=== PATIENT | male | born 1995 | race Two or more races ===

== ENCOUNTER → 2022-07-05 15:20 | Outpatient (BNVA) | payer MEDICAID, SELFPAY | PROVIDERS: Visit Provider Physician Assistant ==

== ENCOUNTER → 2022-07-24 14:59 | Outpatient (BNVA) | payer OTHER, SELFPAY | PROVIDERS: PCP Family Medicine; Visit Provider Physician Assistant Surgical | DX: Z13.89 Encounter for screening for other disorder (principal) ==

== ENCOUNTER 2022-07-26 10:41 | Outpatient (REF) | payer OTHER, SELFPAY ==
[2022-07-28 11:28] LABS: H Pylori Breath Test Negative (Negative)
== END 2022-07-26 10:42 | disposition home or self-care (01) ==
LOC: HO.LNP 10:41
PROVIDERS: Physician Assistant Surgical; PCP Family Medicine; Visit Provider Physician Assistant
DX: E66.01 Morbid (severe) obesity due to excess calories (principal)
CPT/HCPCS: 83013

== ENCOUNTER 2022-07-31 09:15 | Outpatient (REF) | payer OTHER, SELFPAY ==
--- NOTE | ~2022-07-31 | XR_ITS ---
EXAMINATION: XR CHEST CLINICAL INFORMATION: Bariatric service evaluation. E66.01. COMPARISON: None available. TECHNIQUE: 2 views of the chest were obtained. FINDINGS: The lungs are clear. There is no airspace consolidation, groundglass opacity, or effusion. Heart size normal. Vascularity normal. The hilar and mediastinal contours are unremarkable. No acute bony abnormality. XR/XR chest 2V IMPRESSION: Unremarkable examination.
--- NOTE | 2022-07-31 09:24 | ECG_ITS ---
Test Reason : e66.01 Blood Pressure : / mmHG Vent. Rate : 051 BPM Atrial Rate : 051 BPM P-R Int : 130 ms QRS Dur : 100 ms QT Int : 410 ms P-R-T Axes : 026 061 025 degrees QTc Int : 377 ms Sinus bradycardia with sinus arrhythmia Otherwise normal ECG No previous ECGs available Referred By: Cesar Sparks Electronically Signed By:VAIBHAV OROZCO
[2022-07-31 10:03] LABS: MANUAL DIFF FLAG NO
[2022-07-31 10:44] LABS: Basophils Absolute Auto 0.1 X10*3/uL (0.0-0.2); Basophils Percent Auto 0.7 % (0-2); Eosinophils Absolute Auto 0.3 X10*3/uL (0.0-0.4); Eosinophils Percent Auto 3.1 % (0-4); Hematocrit 41.7 % (42.0-52.0); Hemoglobin 14.2 g/dl (14.0-18.0); Imm Gran Abs Auto 0.02 X10*3/uL (0.00-0.03); Imm Gran Pct Auto 0.2 % (0.0-0.4); Lymphocytes Absolute Auto 2.7 X10*3/uL (1.2-4.9); Lymphocytes Percent Auto 29.8 % (20-40); Mean Corpuscular HGB Conc 34.1 g/dl (31.0-36.0); Mean Corpuscular Hemoglobin 30.7 pg (27.0-33.0); Mean Corpuscular Volume 90.1 fL (80.0-98.0); Mean Platelet Volume 9.8 fL (9.4-12.4); Monocytes Absolute Auto 0.8 X10*3/uL (0.1-1.2); Monocytes Percent Auto 8.4 % (2-11); Neutrophils Absolute Auto 5.2 x10*3/uL (2.0-8.3); Neutrophils Percent Auto 57.8 % (45-73); Platelet Count 304 X10*3/uL (160-400); Red Blood Count 4.63 X10*6/uL (4.60-5.80); Red Cell Distribution Width 12.4 % (11.0-16.0)
[2022-07-31 10:58] LABS: Estimated Average Glucose 100 mg/dL; Hemoglobin A1c % 5.1 %
[2022-07-31 11:18] LABS: Alanine Aminotransferase 25 U/L (0-40); Albumin Level 4.1 g/dL (3.5-5.0); Alkaline Phosphatase 76 U/L (39-117); Anion Gap 10 (12-20); Aspartate Amino Transferase 17 U/L (5-37); Bilirubin Total 0.9 mg/dL (0.0-1.0); Blood Urea Nitrogen 9 mg/dL (9-16); C Reactive Protein 0.93 mg/dL (< or = 0.50); Calcium 9.7 mg/dL (8.4-10.2); Carbon Dioxide 28 mmol/L (22-29); Chloride 104 mmol/L (96-108); Cholesterol 133 mg/dL; Estimated Glomerular Filt Rate > 60; Glucose Random 84 mg/dL (60-115); HDL Cholesterol 34 mg/dL; Iron 113 mcg/dL (45-160); LDL Cholesterol Calculated 89 mg/dl; Percent Iron Saturation 38 % (15-50); Potassium 4.1 mmol/L (3.3-5.1); Sodium 138 mmol/L (135-145); Total Iron Binding Capacity 297 mcg/dL (228-428); Triglycerides 54 mg/dL; Unsaturated Iron Binding 184 ug/dL
[2022-07-31 11:49] LABS: Ferritin 113 ng/mL (20-250); Folate 12.6 ng/mL (> or = 4.0); Insulin 14 uU/mL (2-29); Vitamin B12 570 pg/mL (200-900); Vitamin D 25-OH Total 18.9 ng/mL (>30)
[2022-08-02 15:33] LABS: Calcium (PTHI) 9.5 mg/dL (8.6-10.3); PTHI 41 pg/mL (16-77)
[2022-08-05 13:13] LABS: Zinc 66 mcg/dL (60-130)
[2022-08-07 08:59] LABS: Vitamin B1 <6 nmol/L (8-30)
[2022-08-08 16:54] LABS: Vitamin A 34 mcg/dL (38-98)
== END 2022-07-31 09:16 | disposition home or self-care (01) ==
LOC: HO.XRAY 09:15
PROVIDERS: PCP Family Medicine; Visit Provider Physician Assistant Surgical
DX: E66.01 Morbid (severe) obesity due to excess calories (principal); Z20.2 Contact with and (suspected) exposure to infections with a predominantly sexual mode of transmission
CPT/HCPCS: 36415; 71046; 80053; 80061; 82306; 82607; 82728; 82746; 83036; 83525; 83540; 83970; 84425; 84443; 84590; 84630; 85025; 86140; 93005

== ENCOUNTER → 2022-08-20 13:00 | Outpatient (BNVA) | payer OTHER, SELFPAY | PROVIDERS: PCP Family Medicine; Visit Provider Physician Assistant Surgical ==

== ENCOUNTER → 2022-08-22 13:00 | Outpatient (BNVA) | payer OTHER, SELFPAY | PROVIDERS: PCP Family Medicine; Visit Provider Counselor Mental Health ==

== ENCOUNTER → 2022-09-03 13:27 | Outpatient (BNVA) | payer OTHER, SELFPAY | PROVIDERS: PCP Family Medicine; Visit Provider Dietitian, Registered | DX: E66.9 Obesity, unspecified (principal); Z71.3 Dietary counseling and surveillance | CPT/HCPCS: 97802 ==

== ENCOUNTER → 2022-09-10 12:30 | Outpatient (BNVA) | payer OTHER, SELFPAY | PROVIDERS: PCP Family Medicine; Visit Provider Counselor Mental Health ==

== ENCOUNTER → 2022-09-25 13:17 | Outpatient (BNVA) | payer OTHER, SELFPAY | PROVIDERS: PCP Family Medicine; Visit Provider Physician Assistant Surgical ==

== ENCOUNTER 2022-09-27 08:30 | Outpatient (REF) | payer OTHER, SELFPAY ==
--- NOTE | ~2022-09-27 | US_ITS ---
EXAMINATION: US COMPLETE ABDOMEN WITH LIVER ELASTOGRAPHY CLINICAL INFORMATION: Morbid obesity. COMPARISON: None available. TECHNIQUE: Real-time imaging of the abdominal viscera. Noninvasive ultrasound liver fibrosis assessment is performed using Kevin ElastPQ point quantification shear wave elastography (2D-SWE) with a C5-2 MHz transducer. Multiple elastography samples are obtained. FINDINGS: PANCREAS: Normal. The visualized pancreatic head and body are normal in appearance. The remainder of the pancreas is obscured from visualization by the overlying bowel gas. ABDOMINAL AORTA: The proximal, middle, and distal aortic segments are normal in caliber. INFERIOR VENA CAVA: Visualized portions are normal. LIVER: There is increased echogenicity without evidence of focal mass or intrahepatic bile duct dilatation. The right lobe measures 15.7 cm in length. The left lobe measures 10.7 cm in length. Portal flow is hepatopedal. Shear wave liver elastography median stiffness is 1.57 m/s (reference: normal median stiffness is 1.3 m/s or less). IQR/median stiffness to assess sampling precision is 0.06 (reference: good quality data set is IQR/median stiffness of 0.15 or less). GALLBLADDER: Normal. The gallbladder is physiologically distended without evidence of stones, sludge, polyps, wall thickening or pericholecystic fluid. COMMON BILE DUCT: Normal in caliber measuring 0.4 cm in diameter. RIGHT KIDNEY: Normal. No hydronephrosis. No renal calculi or focal parenchymal lesions. The kidney measures 11.5 cm in maximum dimension. LEFT KIDNEY: No hydronephrosis. No calculi identified. There is a low-density lesion seen within the upper pole measuring 2.1 x 2.3 x 1.7 cm in size which has the appearance of a complex cyst (Bosniak 2F) for which 6 month follow up renal ultrasound is recommended. The kidney measures 12 cm in maximum dimension. SPLEEN: Normal. The spleen measures 11.5 cm in maximum dimension. FREE FLUID: None. US/US abdomen comp w elastography IMPRESSION: 1. Homogeneous increased echogenicity of liver parenchyma consistent with fatty infiltration. 2. Liver elastography: In the absence of other known clinical signs, measurements rule out compensated advanced chronic liver disease. If there are known clinical signs, further testing may be needed for confirmation. 3. Appearance of left renal complex cyst for which 6 month follow up study is recommended. REFERENCE: Society of Radiologists in Ultrasound Liver Stiffness Thresholds (2020): LIVER STIFFNESS THRESHOLDS: *Liver Stiffness equal or less than 1.3 m/s: High probability of being normal. *Liver Stiffness less than 1.7 m/s: In the absence of other known clinical signs, rules out compensated advanced chronic liver disease. *Liver Stiffness 1.7-2.1 m/s: Suggestive of compensated advanced chronic liver disease but need further test for confirmation. *Liver Stiffness over 2.1 m/s: Rules in compensated advanced chronic liver disease. *Liver Stiffness over 2.4 m/s: Suggestive of clinically significant portal hypertension. QUALITY OF DATA SET: *IQR/Median value equal or less than 0.15 implies a quality data set. *IQR/Median value over 0.15 implies a poor quality data set. SIGNIFICANT CHANGE FROM PRIOR EXAM: Significant change if liver stiffness measurement is 10% or greater from prior exam. OTHER CONSIDERATIONS: The stage of liver fibrosis may be overestimated in the setting of acute hepatitis, liver inflammation, elevated liver function tests, hepatic vascular congestion, obstructive cholestasis, non-fasting state, and infiltrative diseases such as amyloidosis and lymphoma. In some patients with NAFLD, the liver stiffness thresholds for compensated advanced chronic liver disease may be lower. In causes other than viral hepatitis and NAFLD, liver stiffness thresholds are not well established.
== END 2022-09-27 08:31 | disposition home or self-care (01) ==
LOC: HO.US 08:30
PROVIDERS: PCP Family Medicine; Visit Provider Physician Assistant Surgical
DX: E66.01 Morbid (severe) obesity due to excess calories (principal)
CPT/HCPCS: 74246; 76705; 76981

== ENCOUNTER 2022-10-24 13:21 | Outpatient (AMB) | payer OTHER, SELFPAY ==
--- NOTE | 2022-10-24 13:03 | MHC.OFFVISWM ---
Intake VS Expanded 10/24/22 13:07 Height 5 ft 6 in Weight 236 lb 9.6 oz BMI 38.2 Intake Visit Reasons: VIDEO F/U SWL Allergies No Known Allergies Allergy (Verified 07/24/22 15:05) HPI HPI Comments History of Present Illness Details The patient is a pleasant 27 year old male who returns to the clinic for pre-operative surgical weight loss management. They were last seen in the office on 09/25/22, recorded weight at that time was 234.8 pounds, with a BMI of 37.9. Today's weight is 236.6 pounds and BMI is 38.2. There has been a weight loss of 19.2 pounds since initiating the surgical weight loss program on 07/05/22 with a total body weight loss of 7.5 %. Pre op work up completed as follows: SWL classes:? 06/29 BH appts: cleared-09/10/22 ? ? RD appts: 10/30/22 Labs: 07/31/22-low D, B1 H. pylori: 07/26/22-neg CXR: 07/31/22-nad EK07/31/22-sinus myles ABD U/S: 09/27/22-L upper pole kidney cyst UGI: 09/27/22-mild gerd The patient reports he had a migraine for the last several days Current meal plan includes: 3 Premier Protein shakes ([employer], [employer], [facility]), First shake, (1 scoop in 8 oz low fat unsweetened almond milk) at 9am-11am Second shake, (1 scoop in 8 oz unsweetened almond milk) at? 1pm-3pm 1 ZP at 4pm-6pm. Dinner at 6pm (8 forks of protein and 8 forks of salad/vegetables). Another shake with 1 scoop in 8 oz unsweetened almond milk at 7pm-9pm. Drinking 80-96 oz of water Current exercise plan includes: Walking 2.5 miles 3 x week, 230-240 calories states he is going to join [employer] Surgical History No pertinent past surgical history Family History Mother No problems noted. Father No problems noted. Social History Alcohol intake: current Alcohol intake frequency: holidays/special occasions only Alcohol type: wine Patient Tobacco Use Status: Never used Tobacco Assessment & Plan Assessment & Plan (1) Obesity (BMI 30-39.9): Code(s): E66.9 - Obesity, unspecified Plan: reminded of upcoming appt with RD Encouraged to join [employer] and increase cardio - given discount paper via picture rtc 1 month Telehealth Telehealth Location of provider rendering services: practice address Location of patient: address on file Patient Identification confirmed using: Name, : Yes Telehealth method: video Patient verbally consented to treatment: Yes Patient verbally consented to billing insurance company: Yes Patient informed of any privacy concerns related to visit: Yes Minutes spent on Phone/Video with Pt.: 10 Coding Level of Care Code Tele Est Pt Level 3 (55178) Diagnoses Obesity (BMI 30-39.9) E66.9 Time Spent (min) 18
[2022-10-24 13:07] VITALS: BMI 38.2
== END 2022-10-24 14:11 | disposition home or self-care (01) ==
LOC: HO.HBS 13:22
PROVIDERS: PCP Family Medicine; Visit Provider Physician Assistant Surgical
DX: E66.9 Obesity, unspecified (principal)
CPT/HCPCS: 99213

== ENCOUNTER → 2022-10-24 13:21 | Outpatient (BNVA) | payer OTHER, SELFPAY | PROVIDERS: PCP Family Medicine; Visit Provider Physician Assistant Surgical | DX: E66.9 Obesity, unspecified (principal) ==

== ENCOUNTER 2022-10-30 13:28 | Outpatient (AMB) | payer OTHER, SELFPAY ==
--- NOTE | 2022-10-30 13:15 | MHC.AMNUTRGE ---
Intake Intake Visit Reasons: VIDEO F/U SWL Allergies No Known Allergies Allergy (Verified 07/24/22 15:05) HPI Nutrition Presentation Details New patient weight 255# Reason for consult elevated BMI Diet Assmnt Details Patient reports he is now following the plan again. Due to the heat he went off track His grandmother had bariatric surgery with [facility] and he reports she has inspired him to get healthier also Exercise: has a treadmill at home and a stationary bike, outside bike. but has not been doing anything recently due to the heat. Classes completed: scored poorly on 4&6 I spoke with patient about this today. He was very receptive to repeating the classes Dietary counseling reduction Diagnosis Nutrition problem #1 overweight/obesity As related to (etiology) #1 excess energy intake and physical inactivity As evidenced by (sign/symptom) #1 high BMI Monitoring/Goals Nutrition problem monitoring total energy intake, level of knowledge/skill, total PRO intake, total CHO intake and weight Outcome progress verbalized understanding Learning/Education Readiness to learn good Stages of change action Educational materials provided Yes Most Recent Diabetes Results: No Data to Display [facility] Surgical History No pertinent past surgical history Family History Mother No problems noted. Father No problems noted. Social History Alcohol intake: current Alcohol intake frequency: holidays/special occasions only Alcohol type: wine Patient Tobacco Use Status: Never used Tobacco Assessment & Plan Assessment & Plan (1) Obesity (BMI 30-39.9): Code(s): E66.9 - Obesity, unspecified Patient Instructions: Patient is cleared from a nutrition standpoint for bariatric surgery. Educational requirements have been completed. Reviewed vitamin supplementation and commitment to protein shake for several months post surgery. Encouraged communication with office as needed Telehealth Telehealth Location of provider rendering services: practice address Location of patient: address on file Patient Identification confirmed using: Name, : Yes Telehealth method: video Patient verbally consented to treatment: Yes Patient verbally consented to billing insurance company: Yes Patient informed of any privacy concerns related to visit: Yes Minutes spent on Phone/Video with Pt.: 20 Coding Level of Care Code Nutr Indiv Subseq (32379) Diagnoses Obesity (BMI 30-39.9) E66.9 Time Spent (min) 20
== END 2022-10-30 13:34 | disposition home or self-care (01) ==
LOC: HO.HBS 13:28
PROVIDERS: PCP Family Medicine; Visit Provider Dietitian, Registered
DX: E66.9 Obesity, unspecified (principal)

== ENCOUNTER → 2022-10-30 13:28 | Outpatient (BNVA) | payer OTHER, SELFPAY | PROVIDERS: PCP Family Medicine; Visit Provider Dietitian, Registered | DX: E66.9 Obesity, unspecified (principal); Z71.3 Dietary counseling and surveillance | CPT/HCPCS: 97803 ==

== ENCOUNTER 2022-11-19 10:34 | Outpatient (AMB) | payer OTHER, SELFPAY ==
--- NOTE | 2022-11-19 12:38 | MHC.OFFVISWM ---
Intake VS Expanded 11/19/22 12:55 Height 5 ft 6 in Weight 232 lb 8 oz BMI 37.5 Body Fat 84.7 Body Fat Percentage 36.4 Free Fat Mass 148 Visceral Mass 15 Water Mass 105.4 BMR 2,089 Intake Visit Reasons: TV Consult/Transfer Cesar Allergies No Known Allergies Allergy (Verified 11/19/22 12:38) Medication List - Last Reconciled 11/19/22 by Stevie Rodriguez MD cholecalciferol (vitamin D3) 125 mcg PO DAILY thiamine HCl (vitamin B1) 100 mg PO DAILY 90 days vitamin A palmitate 3,000 mcg PO DAILY 90 days HPI TV Consult/Transfer Cesar HPI Details Start time: 12.27pm, End time: 1.03pm ?I spent 30 minutes speaking with the patient on the phone plus an additional 5 minutes reviewing and updating records for a total of 35 minutes HPI Comments History of Present Illness Details Overall weight loss: 23lbs, or 8.99% TBWL Is doing 3 Pure protein shakes (one scoop in 8oz almond milk), a [place] yogurt and one meal (8 forks of protein and 8 forks of salad or vegetables) Exercise: walking outside daily for 350 calories [facility] Medical History (Updated 11/19/22 @ 12:59 by Stevie Rodriguez MD) Back pain Depression GERD (gastroesophageal reflux disease) Surgical History No pertinent past surgical history Family History Mother No problems noted. Father No problems noted. Social History Alcohol intake: current Alcohol intake frequency: holidays/special occasions only Alcohol type: wine Patient Tobacco Use Status: Never used Tobacco Assessment & Plan Assessment & Plan (1) GERD (gastroesophageal reflux disease): Code(s): K21.9 - Gastro-esophageal reflux disease without esophagitis (2) Depression: Code(s): F32.A - Depression, unspecified (3) Back pain: Code(s): M54.9 - Dorsalgia, unspecified (4) Obesity: Code(s): E66.9 - Obesity, unspecified Plan: 1. Plan for lap sleeve gastrectomy including upper GI endoscopy. All tests has been completed and reviewed and the patient is cleared for the surgery. ?If diaphragmatic or ventral hernias are present at time of surgery, these will be repaired laparoscopically as well. Risks and complications were discussed in detail including possible conversion to an open procedure, anastomotic leak, bleeding requiring transfusion, small bowel obstruction, , DVT and pulmonary embolism, cardiac, or pulmonary complications, as petroleum terminal plant operator complications such as anastomotic ulcer, insufficient weight loss and vitamin deficiencies. I emphasized the importance of close follow-up, adherence to instructions and good communication. So far he has proven to be an excellent communicator and very compliant with all our directions accomplishing a great weight loss. I believe that he is an excellent candidate and he is ready. 2. Change nutritional plan to 3 Pure protein shakes (HALF scoop EACH in 8oz almond milk), a [place] yogurt and one meal (8 forks of protein and 8 forks of salad or vegetables) 3. Please replace the yogurt with a Zone Perfect protein bar 4. Exercise: continue walking outside daily for 350 calories 5. Start treadmill with an incline of 2.0 and speed of 3.0. Increase incline by 1 every 3 min to a max incline of 8.0, stay 3min at 8.0 and then return to 2.0 and repeat same steps until calorie goal is met. Goal is to burn 2000 calories per week on exercise, which means either 300 calories daily, or 400 calories 5 days per week, or 500 calories 4 days per week, or 650 calories 3 days per week. 6. Alternatively start stationary bike at a resistance level of 4.0 Increase level by 1.0 every 3 min to a max level of 10.0. Stay at this level for 3 min and then return to level 4.0 and repeat same steps until 300 calories are burned. Velocity target is 12mph and heart rate is 145 bpm. Goal is to burn 2000 calories per week on exercise 7. Send me weight measurements weekly on Tuesdays (5) BMI 37.0-37.9, adult: Code(s): Z68.37 - Body mass index [BMI] 37.0-37.9, adult Telehealth Telehealth Location of provider rendering services: practice address Location of patient: address on file Patient Identification confirmed using: Name, : Yes Telehealth method: voice only Patient verbally consented to treatment: Yes Patient verbally consented to billing insurance company: Yes Patient informed of any privacy concerns related to visit: Yes Minutes spent on Phone/Video with Pt.: 35 Coding Level of Care Code Tele Est Pt Level 4 (28197) Diagnoses GERD (gastroesophageal reflux disease) K21.9 Depression F32.A Back pain M54.9 Obesity E66.9 BMI 37.0-37.9, adult Z68.37 Time Spent (min) 35
[2022-11-19 12:55] VITALS: BMI 37.5
== END 2022-11-19 13:03 | disposition home or self-care (01) ==
LOC: HO.HBS 10:34
PROVIDERS: PCP Family Medicine; Visit Provider Surgery
DX: K21.9 Gastro-esophageal reflux disease without esophagitis (principal); F32.A Depression, unspecified; M54.9 Dorsalgia, unspecified; E66.9 Obesity, unspecified; Z68.37 Body mass index [BMI] 37.0-37.9, adult
CPT/HCPCS: 99214

== ENCOUNTER → 2022-11-19 10:34 | Outpatient (BNVA) | payer OTHER, SELFPAY | PROVIDERS: PCP Family Medicine; Visit Provider Surgery ==

== ENCOUNTER 2022-11-29 08:48 | Outpatient (REF) | payer OTHER, SELFPAY ==
[2022-11-29 09:07] LABS: MANUAL DIFF FLAG NO
[2022-11-29 09:38] LABS: Basophils Absolute Auto 0.1 X10*3/uL (0.0-0.2); Basophils Percent Auto 0.5 % (0-2); Eosinophils Absolute Auto 0.3 X10*3/uL (0.0-0.4); Eosinophils Percent Auto 2.7 % (0-4); Hemoglobin 14.3 g/dl (14.0-18.0); Imm Gran Abs Auto 0.04 X10*3/uL (0.00-0.03); Imm Gran Pct Auto 0.4 % (0.0-0.4); Lymphocytes Absolute Auto 3.2 X10*3/uL (1.2-4.9); Lymphocytes Percent Auto 29.1 % (20-40); Mean Corpuscular Volume 90.9 fL (80.0-98.0); Mean Platelet Volume 9.9 fL (9.4-12.4); Monocytes Absolute Auto 0.8 X10*3/uL (0.1-1.2); Monocytes Percent Auto 6.9 % (2-11); Neutrophils Absolute Auto 6.7 x10*3/uL (2.0-8.3); Neutrophils Percent Auto 60.4 % (45-73); Platelet Count 311 X10*3/uL (160-400); Red Blood Count 4.62 X10*6/uL (4.60-5.80); Red Cell Distribution Width 12.8 % (11.0-16.0); White Blood Count 11.1 X10*3/uL (4.8-10.8)
[2022-11-29 09:43] LABS: INTERNATIONAL NORM RATIO 1.1 (0.9-1.1); Prothrombin Time 13.1 SEC (11.1-13.3)
[2022-11-29 09:46] LABS: Partial Thromboplastin Time 41.1 SEC (26.0-36.4)
[2022-11-29 09:48] LABS: Estimated Average Glucose 97 mg/dL
[2022-11-29 10:23] LABS: Alanine Aminotransferase 22 U/L (0-40); Albumin Level 4.1 g/dL (3.5-5.0); Alkaline Phosphatase 89 U/L (39-117); Anion Gap 9 (12-20); Aspartate Amino Transferase 13 U/L (5-37); Bilirubin Total 0.6 mg/dL (0.0-1.0); Blood Urea Nitrogen 13 mg/dL (9-16); C Reactive Protein 1.24 mg/dL (< or = 0.50); Calcium 9.6 mg/dL (8.4-10.2); Carbon Dioxide 27 mmol/L (22-29); Chloride 105 mmol/L (96-108); Cholesterol 144 mg/dL (<200); Estimated Glomerular Filt Rate > 60; Glucose Random 87 mg/dL (60-115); HDL Cholesterol 40 mg/dL (>40); LDL Cholesterol Calculated 93 mg/dL (<100); Potassium 4.1 mmol/L (3.3-5.1); Sodium 137 mmol/L (135-145); Total Protein 7.4 g/dL (6.5-8.0); Triglycerides 57 mg/dL (<150)
[2022-11-29 10:49] LABS: Insulin 20 uU/mL (2-29); TSH reflex Free T4 2.25 uIU/mL (0.32-4.0)
== END 2022-11-29 08:49 | disposition home or self-care (01) ==
LOC: HO.LAB 08:48
PROVIDERS: PCP Family Medicine; Visit Provider Surgery
DX: E66.9 Obesity, unspecified (principal); K21.9 Gastro-esophageal reflux disease without esophagitis; F41.9 Anxiety disorder, unspecified; F32.A Depression, unspecified; Z71.3 Dietary counseling and surveillance; Z68.37 Body mass index [BMI] 37.0-37.9, adult
CPT/HCPCS: 36415; 80053; 80061; 83036; 83525; 84443; 85025; 85610; 85730; 86140; 86850; 86900; 86901

== ENCOUNTER 2022-11-29 09:37 | Outpatient (AMB) | payer OTHER, SELFPAY ==
[2022-11-29 17:46] VITALS: BMI 37.8
--- NOTE | 2022-11-29 17:46 | A.OFFVIS_ITS ---
Intake VS Expanded 11/29/22 17:46 Height 5 ft 6 in Weight 234 lb 1 oz BMI 37.8 Body Fat 87 Body Fat Percentage 37.2 Free Fat Mass 147 Visceral Mass 15 Water Mass 104.6 BMR 2,098 Intake Visit Reasons: TV Pre Op LSG 12/05/22 Allergies No Known Allergies Allergy (Verified 11/19/22 12:38) HPI TV Pre Op LSG 12/05/22 HPI Details Start time: 3pm, End time: 3.30pm I spent 15 minutes speaking with the patient on the phone plus an additional 5 minutes reviewing and updating records for a total of 20 minutes HPI Comments History of Present Illness Details Overall weight loss: 21.7lbs, or 8.48% TBWL Is doing 3 Pure protein shakes (1 scoop each in oz almond milk, one French yogurt and a meal (8 forks of protein and 8 forks of salad or vegetables) Exercise: walking outside for 350 calories x5-6 days per week PFSH Medical History (Updated 11/29/22 @ 13:26 by Fanny Mederos RN) Anxiety Back pain GERD (gastroesophageal reflux disease) Depression Surgical History No pertinent past surgical history Family History Mother No problems noted. Father No problems noted. Social History Are you a primary student career development specialist to a significant other at home: No Do you presently have visiting nurse or other home services: No Alcohol intake: current Alcohol intake frequency: does not drink Alcohol type: wine Patient Tobacco Use Status: Never used Tobacco Use of substances other than those prescribed or required for medical reasons: No Have you been hit, kicked, punched, or otherwise hurt by someone within the past year? If so, by whom?: No Are you DNR?: No Advance Directives: No Advance Directives Information Provided: Yes (brochure mailed) Advance Directives on File: No Recently lost weight without trying: No Eating poorly because of decreased appetite: No Nutrition Risks: No Nutritional Risk Poor oral hygiene: No Physical Exam Vital Signs: BMI result Body Mass Index 37.8 Assessment & Plan Assessment & Plan (1) Obesity: Code(s): E66.9 - Obesity, unspecified Plan: 1. Plan for lap sleeve gastrectomy including upper GI endoscopy. All tests has been completed and reviewed and the patient is cleared for the surgery. If diaphragmatic or ventral hernias are present at time of surgery, these will be repaired laparoscopically as well. Risks and complications were discussed in detail including possible conversion to an open procedure, anastomotic leak, bleeding requiring transfusion, small bowel obstruction, , DVT and pulmonary embolism, cardiac, or pulmonary complications, as intermediate complications such as anastomotic ulcer, insufficient weight loss and vitamin deficiencies. I emphasized the importance of close follow-up, adherence to instructions and good communication. So far he has proven to be an excellent communicator and very compliant with all our directions accomplishing a great weight loss. I believe that he is an excellent candidate and he is ready. 2. Preop prescriptions were provided and explained the purpose of each one. Need to be purchased preop. Start Pantoprazole now as you get it from the pharmacy, 1 pill per day. Sucralfate and Zofran are for after surgery as needed. 3. Bowel prep: please do 7 packets of Miralax mixing each one with a an 8oz glass of water, crystal light, gatorade zero, or propel on 12/03/22 and the same amount on 12/04/22. Continue the protein shakes during the bowel prep. 4. Needs to purchase 1oz medicine cups . 5. Needs to purchase Children's liquid Tylenol for postop pain control. 6. Avoid aspirin, motrin, Advil, Aleve, Ibuprofen, Naproxyn. Tylenol is OK. 7. She needs to purchase the Celebrate 4:1 protein shakes from the [facility] gift [facility]. 8. Will do basic preop blood work-up tomorrow 11/29/22 fasting for 12 hours and is scheduled to see the Anesthesiologist prior to the day of surgery. 9. Importance of adherence to postop folllow-up and recommendations was undersc radha and she understands that. 10. Stop food and bars as of tomorrow 11/29/22 and continue with 4 Pure protein shakes (1/2 scoop in 8oz almond milk) at 1pm-3pm, 4pm-6pm, 7pm-9pm and 10pm-12am and one more Pure protein shake with ONE scoop in 8oz of almond milk at 1am-3am 11. No soups, broths or V8 12. The patient's medical history has been reviewed and they are considered low risk for post op DVT and therefore DVT prophylaxis is not considered necessary. Travel after surgery was reviewed. The patient has not disclosed any travel plans during the first 30 days after surgery and they have been advised that within the first 30 days after surgery any bus, plane, train or car travel over 2 hours in duration is contraindicated due to the possibility of developing blood clots from immobility. Any travel, needs to include periods of ambulation of 10 minutes in duration every 2 hours. Patient was instructed to discuss any plans for travel during this period with their bariatric surgeon. 13. Please take at the day of surgery the following medications: 14. Absolutely no smoking or vaping, or marijuana until the surgery and for at least the first 4 weeks. Only nicotine patches are allowed. 15. Send me weight measurements on and then on the day of surgery before you go to the hospital. 16. Avoid any steroids by mouth for any reason. Let me know if someone prescribes them to you (2) BMI 37.0-37.9, adult: Code(s): Z68.37 - Body mass index [BMI] 37.0-37.9, adult Telehealth Telehealth Location of provider rendering services: practice address Location of patient: address on file Patient Identification confirmed using: Name, : Yes Telehealth method: voice only Patient verbally consented to treatment: Yes Patient verbally consented to billing insurance company: Yes Patient informed of any privacy concerns related to visit: Yes Minutes spent on Phone/Video with Pt.: 30 Coding Level of Care Code Tele Est Pt Level 4 (58084) Diagnoses Obesity E66.9 BMI 37.0-37.9, adult Z68.37 Time Spent (min) 30
== END 2022-11-29 17:57 | disposition home or self-care (01) ==
PROVIDERS: PCP Family Medicine; Visit Provider Surgery
DX: E66.9 Obesity, unspecified (principal); Z68.37 Body mass index [BMI] 37.0-37.9, adult
CPT/HCPCS: 99214

== ENCOUNTER 2022-12-05 06:04 | Inpatient (IN) | payer OTHER, SELFPAY ==
[2022-11-29 13:29] VITALS: BMI 37.8
--- NOTE | 2022-11-29 23:37 | MHC.SHP ---
Pre-Procedural Eval Section A Date of Service: 11/29/22 The patient is an INPATIENT: Yes The History & Physical has been completed within 30 days and I have reviewed it.: Yes Section B Chief Complaint: Obesity, unspecified Relevant Family History (Specify if Yes): No Relevant Social History: None Present Medications: None Medical History: No relevant PMH History of Previous Operations: No relevant previous surgery Allergies: Allergies Allergy/AdvReac Type Severity Reaction Status Date / Time No Known Allergies Allergy Verified 11/19/22 12:38 Review of Systems Sugical H&P ROS: Negative: Constitution, Cardiovascular, Respiratory, Neurological, Psychiatric, Hem-Onc, Allergic/Immunologic, Gastrointestinal, Genitourinary, Musculoskeletal, Integumentary, Endocrine and Eyes/Ears/Nose/Throat Exam Surgical H&P Exam: Normal: HEENT, Normal: Heart, Normal: Lungs, Normal: Extremities, Normal: Abdomen, Normal: Skin and Normal: Neurological Plan Diagnosis/Plan: Unchanged I have reviewed the history and physical and performed a pertinent physical examination on my patient. No changes have occurred unless specified. Time Spent With Patient Time: Total time managing care of this patient today ____ minutes.
--- NOTE | 2022-12-04 10:31 | HO.ANESPROP2 ---
Documented by User: Jessica Conway NP 12/04/22 10:32 HPI - Anesthesia Eval Consult details Narrative: 27yo M for Gastrectomy Sleeve,EGD,poss diaphragmatic hernia,poss ventral hernia,poss open, PMFSH Active Problems Active Problems: All Active Problems (Updated 11/29/22 @ 13:26 by Fanny Mederos RN) BMI 38.0-38.9,adult (Acute) BMI 37.0-37.9, adult (Acute) Obesity (Acute) Renal cyst (Acute) Anxiety disorder, unspecified (Acute) Major depressive disorder, recurrent, mild (Acute) Obesity (BMI 30-39.9) (Acute) Morbid obesity (Acute) Back pain (Acute) GERD (gastroesophageal reflux disease) (Acute) Depression (Acute) Past Medical History Medical History (Updated 12/05/22 @ 07:50 by Stevie Rodriguez MD) Anxiety Back pain GERD (gastroesophageal reflux disease) Depression Family History Family History Mother No problems noted. Father No problems noted. Surgical History Surgical History (Updated 12/05/22 @ 10:24 by Stevie Rodriguez MD) No pertinent past surgical history Social History Social History Household Members: Family Housing: Apartment Are you a primary dog day care attendant to a significant other at home: No Do you presently have visiting nurse or other home services: No Alcohol intake: current Alcohol intake frequency: does not drink Alcohol type: wine Patient Tobacco Use Status: Never used Tobacco Use of substances other than those prescribed or required for medical reasons: No Currently Displaying Signs/Symptoms of Drug Intoxication Withdrawal: No Have you been hit, kicked, punched, or otherwise hurt by someone within the past year? If so, by whom?: No Do you feel safe in your current relationship?: No Current Relationship Is there a partner from a previous relationship who is making you feel unsafe now?: No Are you made to feel afraid or neglected: No Are you DNR?: No Advance Directives: No Advance Directives Information Provided: Yes (brochure mailed) Advance Directives on File: No Do you have thoughts of harming others: None Do you have a plan to hurt others: No Plan Recently lost weight without trying: No Eating poorly because of decreased appetite: No Nutrition Risks: No Nutritional Risk Poor oral hygiene: No Meds Allergies Allergy/AdvReac Type Severity Reaction Status Date / Time No Known Allergies Allergy Verified 11/19/22 12:38 Exam Exam Date and Time: December 04, 2022 1031 Height,Weight and Vital Signs: Height 5 ft 6 in Weight 106.141 kg Pertinent Lab Results Pertinent Lab Results: Laboratory Tests 11/29/22 09:06 WBC 11.1 H Hgb 14.3 Hct 42.0 Plt Count 311 Sodium 137 Potassium 4.1 Chloride 105 Carbon Dioxide 27 BUN 13 Creatinine 0.84 Laboratory Tests 11/29/22 09:00 Blood Type O Positive Antibody Screen NEGATIVE Narrative Narrative: EKG 07/2022 Vent. Rate : 051 BPM Atrial Rate : 051 BPM P-R Int : 130 ms QRS Dur : 100 ms QT Int : 410 ms P-R-T Axes : 026 061 025 degrees QTc Int : 377 ms Sinus bradycardia with sinus arrhythmia Otherwise normal ECG No previous ECGs available Assessment and Plan Assessment Anesthesia Assessment: Chart Reviewed Documented by User: Ernst Suarez MD 12/05/22 16:42 COUNT INCLUDES THE [facility] Past Medical History Medical History (Updated 12/05/22 @ 07:50 by Stevie Rodriguez MD) Anxiety Back pain GERD (gastroesophageal reflux disease) Depression Functional capacity: independent ambulation Family History Family History Mother No problems noted. Father No problems noted. Family history of problems with anesthesia: No Surgical History Surgical History (Updated 12/05/22 @ 10:24 by Stevie Rodriguez MD) No pertinent past surgical history History of Problems with Anesthesia: No Social History Social History Household Members: Family Housing: Apartment Are you a primary dog day care attendant to a significant other at home: No Do you presently have visiting nurse or other home services: No Alcohol intake: current Alcohol intake frequency: does not drink Alcohol type: wine Patient Tobacco Use Status: Never used Tobacco Use of substances other than those prescribed or required for medical reasons: No Currently Displaying Signs/Symptoms of Drug Intoxication Withdrawal: No Have you been hit, kicked, punched, or otherwise hurt by someone within the past year? If so, by whom?: No Do you feel safe in your current relationship?: No Current Relationship Is there a partner from a previous relationship who is making you feel unsafe now?: No Are you made to feel afraid or neglected: No Are you DNR?: No Advance Directives: No Advance Directives Information Provided: Yes (brochure mailed) Advance Directives on File: No Do you have thoughts of harming others: None Do you have a plan to hurt others: No Plan Recently lost weight without trying: No Eating poorly because of decreased appetite: No Nutrition Risks: No Nutritional Risk Poor oral hygiene: No Meds Allergies Allergy/AdvReac Type Severity Reaction Status Date / Time No Known Allergies Allergy Verified 11/19/22 12:38 Exam Airway Mallampati Class: IV Loose/Missing/Broken Teeth: Yes Assessment and Plan Assessment Anesthesia Assessment: Anesthesia Plan Discussed Final Anesthetic Review Family History of Problems with Anesthesia: No History of Problems with Anesthesia: No NPO: Yes ASA Class: II Final Preanesthetic Review: Meds/Allgs Chart Reviewed, Consent Obtained/Reviewed and Anes Risks/Benef Reviewed Patient Risk: Intermediate Procedure Risk: Intermediate Anesthetic Plan Anesthetic Plan: GA and Agree w/ Assess. and Plan Disposition: Standard PACU
[2022-12-05] VITALS (18 sets, daily range): BP systolic 107–162; BP diastolic 63–93; PULSE 51–113; RESP 16–30; TEMP 36–36.7; O2SAT 94–100
[2022-12-05] MEDS: Aprepitant 32 MG/4.4 ML VIAL IVPUSH (06:53)
[2022-12-05] MEDS: Lactated Ringers 1,000 ML 999 ML IV (06:53)
--- NOTE | 2022-12-05 07:25 | PC.NURSE ---
patient states had very little bowel movements after bowel prep. result is small amounts of solid stool. Dr. Donohue and CASSIDY Jose aware.
--- NOTE | 2022-12-05 07:43 | PM.OP ---
Brief Operative Note Date of Service: 12/05/22 Post-op diagnosis: same Procedure: INITIAL PATIENT BMI ON PRESENTATION AT OUR OFFICE: 41.3 kg/m2 LAST BMI BEFORE SURGERY: 38 kg/m2 COMORBIDITIES: GERD, depression, liver steatosis, back pain, liver fibrosis ?The patient presented to the Weight Management Program with significant obesity that was negatively impacting the patient's comorbidities as listed above.? The program is a phased program with a special focus on preoperative medical weight management to promote substantial weight loss and prepare the patients for the second phase of the program: bariatric surgery. The patient participated in an intensive weekly lifestyle ?intervention and exercise program during which the patient ?has lost between the initial office visit and the last preoperative visit 21,7lbs, or 8.48% of initial actual body weight. It was deemed appropriate for the patient to now have bariatric surgery. In light of the current Covid-19 pandemic and the well documented strong association of obesity and increased risk of worse outcomes if infected with Covid-19 (REFERENCES:https://pubmed.ncbi.nlm.nih.gov/34032860/,?https://pubmed.ncbi.nlm.nih.gov/88767221/), any delay in undergoing bariatric surgery may lead to the patient's worsening health condition and increased?risk of more severe Covid-19 disease if infected. In addition a recent?study from [facility] published in [facility] on 03/19/2021 ([email or web address]) found that, among patients with obesity, substantial weight loss achieved with surgery was associated with improved outcomes of COVID-19 infection. The findings suggest that obesity can be a modifiable risk factor for the severity of COVID-19 infection. In addition, the patient met the BMI-criteria for bariatric surgery based on the BMI on initial presentation. The patient should not be penalized for achieving such weight loss because ?it is not sustainable long-term without surgical intervention and it was achieved in preparation for bariatric surgery ?under my direction and based on my published research ([email or web address]).[email or web address] and?https://www.soard.org/article/[email or web address](29)40728-X/pdf) ?that a 10% preoperative weight loss improves long-term weight loss after surgery and reduces perioperative complications.? Insurance carriers such as [facility] have endorsed my recommendations ?and have included in their policies criteria to include a 10% preoperative weight loss requirement. PROCEDURE: Esophago-gastroscopy, laparoscopic sleeve gastrectomy and laparoscopic gastropexy INDICATIONS: This is a 27 year-old male who was electively scheduled for laparoscopic, possibly open sleeve gastrectomy. The risks and complications of the procedure were discussed with the patient in advance, particularly the possibility of ; pulmonary embolism; staple line leak; bleeding; GERD; cardiac, pulmonary, or renal complications; as well as long-term problems such as insufficient weight loss, vitamin deficiency, strictures, or ulcers. The patient understood all the risks, and was in agreement to proceed with surgery. DESCRIPTION OF PROCEDURE: After informed consent was obtained from the patient, the patient was given preoperative antibiotics, and was transferred to the operating room. After successful induction of general anesthesia, pneumatic compression devices were placed on both lower extremities. An upper endoscopy was performed next. The oropharynx and esophagus appeared to be within normal limits. There was no diaphragmatic hernia present consistent with the findings of the preoperative upper GI. The stomach was entered. Then after all fluid and air were suctioned and the stomach was fully decompressed, the scope was withdrawn and secured in the mid esophagus. The patient was then prepped and draped in the usual sterile manner, and abdominal access was established at the right upper quadrant with the Nolberto technique. A 12 mm blunt port was inserted, and the abdomen was insufflated with CO2 to a pressure of 15 mmHg. Under direct visualization, additional ports were placed, specifically two 5 mm Versi-step ports to the left upper quadrant, and a 5 mm Versi-Step port to the right upper quadrant. 1% lidocaine plain was used to infiltrate all port sites as well as all fascia defects. Using the EndoClose suture passer device, I placed a #1 Polysorb tie across the falciform ligament in order to retract it up against the abdominal wall and prevent injury of the ligament with our instruments during the procedure. Following that, the patient was placed in a steep reverse Trendelenburg position. An additional 5 mm port was placed to the right flank for the Mediflex retractor that was used to retract the left lobe of the liver. The gastro-esophageal fat pad was opened with the ultrasonic device (Thunderbeat, Olympus) and the anterior esophagus and hiatus were exposed. The angle of His was opened with the ultrasonic device the fundus of the stomach from any diaphragmatic and splenic attachments. I then opened the gastrocolic ligament between the transverse colon and the greater curvature of the stomach with the ultrasonic device to enter the lesser sac and facilitate the ligation of the short gastric vessels. I started at a mid-point along the greater curvature and using the Thunderbeat, all short gastric vessels were divided all the way to the angle of His until the left tory was completely dissected at its entirety. I then divided the gastro-colic ligament distally to a distance of about 3-4 cm proximal to the pylorus. The stomach was then divided transversely with two Endo IAN-45 purple and three IAN-60 articulating purple loads using the ePAR stapler and loads. Every effort was made that the gastric sleeve had a tubular shape and an even caliber throughout. Once the sleeve resection was completed, the staple line of the gastric sleeve was reinforced with Hemoclips. The resected stomach was retrieved without difficulty from the Nolberto port. A gastropexy was then performed in order to prevent postoperative GERD and partial gastric volvulus. Several interrupted 2.0 Surgidac sutures were placed between the sleeve's staple line and the previously divided greater omentum and gastro-colic ligament using the Endo-Stitch device. ?An upper endoscopy was performed. There was no narrowing at the GE junction. The scope was easily advanced all the way to the pylorus which was clearly visualized. There was no narrowing anywhere and the sleeve's caliber was even throughout. The sleeve's staple line was inspected and there was no evidence of ischemia, bleeding or dehiscence. At that point the gastroscope was withdrawn from the patient?s mouth while we were decompressing the bowel and the stomach from any remaining air. I looked into the lesser sac to see how the sleeve was situating and it was situating well. There was no bleeding from the staple line, spleen, or short gastric vessels. The Mediflex retractor was removed, and the undersurface of the liver was inspected and there was no bleeding. The patient was placed in supine position. I closed the fascial defect of the 12 mm port site with a figure of eight #1 Polysorb suture. Then 30cc Ropivacaine plain with 10 mg of Dexamethasone were used to infiltrate the fascial closure as well as all skin incisions. A total of 7ml Zynrelef was applied in the Nolberto wound. At this point, the abdomen was deflated, all ports were removed under direct vision, and no bleeding was noted from any of the port sites. The skin incisions were irrigated with saline and were closed with 4-0 absorbable monofilament sutures. Steri-Strips and OpSites were used to cover all incisions. The patient was extubated and was transferred in stable condition to the recovery room for further care. I was present and performed all hernández parts of the procedure. Mr. Sparks was the printer floor covering assistant. There were no residents to assist with this case. Russell Rodriguez MD, PhD, FACS Surgeon: Stevie Rodriguez MD Anesthesia: GETA, local and other (TAP block and 7ml Zynrelef) Was an Calender Machine Operator used for this Procedure?: No Calender Machine Operator: Cesar Sparks Estimated blood loss (mL): 10 IV fluids (mL): 2,300 Urine output (mL): 0 (No Lou to record output) Pathology: other (Stomach) Condition: stable Disposition: PACU
--- NOTE | 2022-12-05 07:48 | P.PNGS_ITS ---
Subjective Subjective Date of Service: 12/06/22 Interval history: Feels well. Mild incisional pain. He is tolerating phase 1 bariatric diet Physical Exam 2 Vital Signs: Vital Signs: Last Vital Signs Temp 97.6 F 12/05/22 06:40 Pulse 51 12/05/22 06:40 Resp 16 12/05/22 06:40 BP 107/63 12/05/22 06:40 Pulse Ox 97 12/05/22 06:40 O2 Del Method Room Air 12/05/22 06:40 BMI result Body Mass Index 37.8 GI: Inspection: Yes normal to inspection, Yes incision (clean, dry and intact) and Yes obesity Palpation (GI): Soft to palpation Extrem: Right lower extremity: normal to inspection (no calf tenderness) L eft lower extremity: normal to inspection (no calf tenderness) Objective Data Active Medications Lactated Ringer's (Lr) 1,000 mls @ 100 mls/hr IVCONT .Q10H COLEMAN Lactated Ringer's (Lr) 1,000 mls @ 999 mls/hr IV .Q1H1M COLEMAN Stop: 12/05/22 08:15 Last Admin: 12/05/22 06:53 Dose: 999 mls/hr Documented By: SANDY Labs 12/06/22 06:02 12/06/22 06:02 Procedures Date of Service Date of Service: 12/06/22 Progress Note: A&P Assessment and plan (1) Obesity: Status: Acute Assessment and Plan: s/p laparoscopic sleeve gastrectomy and gastropexy Doing well Will check am labs and if OK the patient will be discharged home (2) BMI 38.0-38.9,adult: Status: Acute (3) GERD (gastroesophageal reflux disease): Status: Acute (4) Depression: Status: Acute (5) Back pain: Status: Acute (6) Liver fibrosis: Status: Acute (7) Steatosis, liver: Status: Acute (8) Status post sleeve gastrectomy: Status: Acute Time Spent With Patient Time: Total time managing care of this patient today ____ minutes. Quality Stroke Does the patient have a stroke diagnosis?: No VTE Prior VTE?: No VTE Risk Level:: Surgical - moderate VTE Device Contraindication: N/A - Device Ordered VTE Drug Contraindication: Treatment Not Indicated
--- NOTE | 2022-12-05 10:35 | P.DS_ITS ---
DS: Providers Provider Date of Service: 12/06/22 Date of admission: 12/05/22 06:04 Primary care physician: Luis Astudillo MD DS: Diagnosis Discharge Diagnosis (1) Obesity: Status: Acute (2) BMI 38.0-38.9,adult: Status: Acute (3) GERD (gastroesophageal reflux disease): Status: Acute (4) Depression: Status: Acute (5) Back pain: Status: Acute (6) Liver fibrosis: Status: Acute (7) Steatosis, liver: Status: Acute (8) Status post sleeve gastrectomy: Status: Acute DS: Summary Hospital Course Hospital Course: ADMITTING DIAGNOSIS: obesity, anxiety, depression ? DISCHARGE DIAGNOSIS: same, s/p laparoscopic sleeve gastrectomy ? PAST SURGICAL HISTORY: none ? PROCEDURE: upper endoscopy, laparoscopic sleeve gastrectomy ? DISCHARGE SUMMARY: ? History of Present Illness: ? The patient is a?27 year-old male with a BMI of?40.8 kg/m2 and associated co- morbidities as described above. The patient had extensive work-up,lost?19.2 lbs preoperatively and was electively scheduled for laparoscopic, possible open sleeve gastrectomy and gastropexy. Risks and complications of the surgery were discussed with the patient in advance, particularly the possibility of , pulmonary embolism, anastomotic leak, bleeding, bowel injury, GERD, cardiac, renal or pulmonary complications. The patient understood all the risks and was in agreement with the surgical plan. ? Hospital Course: ? The patient underwent an uneventful laparoscopic sleeve gastrectomy with gastropexy on the day of admission. Postoperatively, the patient was transferred to the surgical floor. The patient received IV Acetaminophen and IV dilaudid for pain control. Patient was started on bariatric phase 1 diet POD #0. On postoperative day one, the patient was feeling well without nausea, vomiting, fevers, or tachycardia. The patient had some mild incisional pain and the abdomen was soft. ? On the morning of postoperative day one, the patient was continued on 1 ounce of water or ice every half hour. During the day, the patient did fairly well, having some incisional pain, but able to ambulate adequately and to tolerate liquids well. ? Since the patient is doing well, we decided that the patient was ready to be discharged. The patient was given instructions to follow-up with me next week and to call my office for any fever over 101, persistent abdominal pain, nausea, vomiting, GERD, symptoms of DVT such as calf tenderness, or leg swelling, or pulmonary embolism such as chest pain or shortness of breath. The patient was also instructed to drink 40-60 ounces of liquids per day using the 1-ounce cups. The patient had been given prescriptions for Tylenol for pain, Zofran prn for nausea, and pantoprazole and carafate previously. The patient was encouraged to ambulate and use the incentive spirometer. The patient was allowed to shower, but no baths, and encouraged to stay active at home. All of these instructions were given to the patient personally. All questions were answered and the patient understood all instructions, the instructions were also given to the patient in print. Time Spent with Patient Time attestation: Total time managing care of this patient today ____ minutes. Discharge coordination time: Less than 30 minutes Quality: Safe Use of Opioids Does Pt have an Active Cancer Diagnosis on the Problem List?: No Quality: Stroke Does the patient have a stroke diagnosis?: No Physical Exam Vital Signs: Vital Signs: Last Vital Signs Temp 97.3 F 12/05/22 09:55 Pulse 86 12/05/22 10:00 Resp 14 12/05/22 10:00 BP 131/59 L 12/05/22 10:00 Pulse Ox 100 12/05/22 10:00 O2 Del Method Nasal Cannula wit h Capnography 12/05/22 10:00 O2 Flow Rate 2 12/05/22 10:00 BMI result Body Mass Index 37.8 DS: Data Data Completed and Pending Pending studies at discharge: Pending at discharge 12/05/22 09:18 Surgical [PTH] Routine Discharge Plan Discharge Anticipated Discharge Date/Time: 12/06/22 09:36 Patient Disposition: Home, Self-Care Discharge Diagnosis: s/p laparoscopic sleeve gastrectomy Referrals: Luis Astudillo MD [Primary Care Provider] - 1 Week Discharge Medications: Continued pantoprazole 40 mg tablet,delayed release (DR/EC) 40 mg PO DAILY Qty: 30 2RF sucralfate 100 mg/mL suspension 10 ml PO BID Qty: 400 2RF ondansetron 4 mg tablet,disintegrating 4 mg PO Q12H Qty: 20 0RF Rx Instructions: Only take one every 12 hours as needed if you have nausea Discontinued thiamine HCl (vitamin B1) 100 mg tablet 100 mg PO DAILY 90 Days Qty: 90 1RF vitamin A palmitate 3,000 mcg (10,000 unit) capsule 3,000 mcg PO DAILY 90 Days Qty: 90 0RF cholecalciferol (vitamin D3) 125 mcg (5,000 unit) capsule 125 mcg PO DAILY Qty: 90 0RF Discharge Orders: Discharge Order (Routine); Ordered 12/06/22 Ordered By: Stevie Rodriguez Activity on Discharge: No heavy lifting Stand Alone Forms: Patient Portal Discharge page Care Plan Goals: weight loss Health Concerns: obesity Plan of Treatment: No tub baths, sex or returning to work until discussed at first post op a ppointment. No exercise, alcohol, tobacco or illegal drug use. Continue to use incentive spirometer hourly while awake. Walk in home for 5- 10 minutes every 2 hours during the first week. Follow all instructions in the bariatric handbook and call with any questions.Discharge Instructions 1. Please call your doctor or come back to the emergency room should any new symptoms arise. 2. You will receive a courtesy call from [facility] 24-48 hours after discharge. 3. Activity: abstain from alcohol, practice limited stair climbing, no bending, no driving, no exercise, no illicit substances, no lifting, no sex, no tub bath, no work. 4. Diet: continue as discussed with Dr. Rodriguez. 5. Dressing Change/Wound Care: Your incision is covered by clear bandages and guaze underneath. If the area is tender, you may apply an ice pack for short intervals (no more than 20 minutes on, followed by at least 20 minutes off). Do not apply heat. Do not use creams, lotions, or topical antibiotics unless instructed to do so by your surgeon. These can cause infection or allergic reaction. 6. Call your doctor if: - Your temperature exceeds 101.5 F - You experience excessive pain or swelling - You have an unexpected reaction to medication - You have excessive bleeding - You experience continued vomiting/nausea - Your incision begins to separate - Your incision shows signs of infection such as increased redness, swelling, excessive pain, heat, or drainage (light blood or clear fluid is normal) 7. General instructions: No lifting greater than 5 lbs for 1 week and not more than 20lbs the next 3?weeks. No driving until seen at the office in 5-7 days after surgery. If you do not move your bowels in the next 2 days, please tell?Dr. Rodriguez. Please walk around your home every hour or two to prevent blood clots from forming in your legs. You do not need to wake from sleeping to walk. Please sleep in a bed or couch to prevent kinking at the hips and knees. Please take your incentive spirometer (your lung mold shaker) home with you and use it for the next few days to prevent pneumonia. You may shower, no hot tubs, baths or swimming pools.?Please follow the post op diet instructions you are?given by Dr Le galindo? and text me daily at 5-6pm for an update.?If you have any issues or concerns or questions please communicate this to him via text .? The Celebrate shakes have all of the bariatric vitamins you need if you consume these shakes. If you are drinking other protein shakes, you will need to purchase the Celebrate multivitamins and calcium that are available in the hospital gift shop on the first floor of the [facility].??Do not take anything without first discussing with Dr Rodriguez. Please make sure you are consuming at least 40 ounces of fluids per day starting the?day AFTER your discharge from the hospital. Always drink 1-2 ml per minute using the 5ml?syringe. If you drink faster you may experience?bloating,?gas pain, burping, nausea or heartburn. In that case please slow down your pace and use the syringe to?understand better the?proper?pace and volume of drinking. Do not hesitate to contact the office with any questions at . The patient's medical history has been reviewed and they are considered low risk for post op DVT and therefore DVT prophylaxis is not considered necessary. Travel after surgery was reviewed. The patient has not disclosed any travel plans during the first 30 days after surgery and they have been advised that within the first 30 days after surgery any bus, plane, train or car travel over 2 hours in duration is contraindicated due to the possibility of developing blood clots from immobility. Any travel, needs to include periods of ambulation of 10 minutes in duration every 2 hours.? The patient was instructed to discuss any plans for travel during this period with their bariatric surgeon. Assessment: stable s/p laparoscopic sleeve gastrectomy
--- NOTE | 2022-12-05 11:02 | PHA.MEDREC ---
Pharmacy Consult ? Medication Reconciliation Pharmacy has completed the medication reconciliation. Checked med rec done by nursing
[2022-12-05 11:25] LABS: Hemoglobin 13.7 g/dl (14.0-18.0)
[2022-12-05] MEDS: HYDROmorphone HCl 0.5 MG/0.5 ML SYRINGE 0.25 MG IVPUSH ×2 (11:33→11:38)
[2022-12-05 11:35] LABS: Anion Gap 13 (12-20); Blood Urea Nitrogen 7 mg/dL (9-16); Calcium 9.1 mg/dL (8.4-10.2); Carbon Dioxide 24 mmol/L (22-29); Chloride 102 mmol/L (96-108); Creatinine Clr Calc Pharmacy 171.2; Estimated Glomerular Filt Rate > 60; Glucose Random 112 mg/dL (60-115); Potassium 3.6 mmol/L (3.3-5.1); Sodium 135 mmol/L (135-145)
[2022-12-05] MEDS: ceFAZolin Sodium/Dextrose,Iso 2 GM/50 ML PIGGYBACK IV (13:29)
[2022-12-05] MEDS: Lactated Ringers 1,000 ML 100 ML IVCONT ×2 (13:29→23:18)
[2022-12-05] MEDS: Famotidine/PF 20 MG/2 ML VIAL IVPUSH (20:16)
[2022-12-05] MEDS: 0.9 % Sodium Chloride Flush 3 ML SYRINGE IVFLUSH (20:16)
[2022-12-05] MEDS: Acetaminophen 1,000 MG/100 ML PIGGYBACK 400 MG IV (20:33)
[2022-12-06] MEDS: Acetaminophen 1,000 MG/100 ML PIGGYBACK 400 MG IV (02:31)
[2022-12-06 03:46] VITALS: BP 119/65; PULSE 78; RESP 17; TEMP 36.3; O2SAT 96
[2022-12-06 06:13] LABS: MANUAL DIFF FLAG NO
[2022-12-06 06:18] LABS: Basophils Percent Auto 0.1 % (0-2); Eosinophils Percent Auto 0.1 % (0-4); Hematocrit 39.1 % (42.0-52.0); Hemoglobin 13.5 g/dl (14.0-18.0); Imm Gran Abs Auto 0.08 X10*3/uL (0.00-0.03); Imm Gran Pct Auto 0.5 % (0.0-0.4); Lymphocytes Absolute Auto 1.4 X10*3/uL (1.2-4.9); Mean Corpuscular HGB Conc 34.5 g/dl (31.0-36.0); Mean Corpuscular Hemoglobin 30.5 pg (27.0-33.0); Mean Corpuscular Volume 88.3 fL (80.0-98.0); Mean Platelet Volume 9.6 fL (9.4-12.4); Monocytes Percent Auto 6.1 % (2-11); Neutrophils Absolute Auto 13.2 x10*3/uL (2.0-8.3); Neutrophils Percent Auto 84.2 % (45-73); Platelet Count 319 X10*3/uL (160-400); Red Blood Count 4.43 X10*6/uL (4.60-5.80); Red Cell Distribution Width 12.5 % (11.0-16.0); White Blood Count 15.6 X10*3/uL (4.8-10.8)
[2022-12-06 06:32] LABS: Anion Gap 13 (12-20); Blood Urea Nitrogen 6 mg/dL (9-16); Calcium 9.2 mg/dL (8.4-10.2); Carbon Dioxide 23 mmol/L (22-29); Chloride 106 mmol/L (96-108); Creatinine Clr Calc Pharmacy 191.9; Estimated Glomerular Filt Rate > 60; Glucose Random 112 mg/dL (60-115); Potassium 4.1 mmol/L (3.3-5.1); Sodium 138 mmol/L (135-145)
[2022-12-06 07:03] VITALS: BP 130/79; PULSE 55; RESP 18; TEMP 36.4; O2SAT 97
[2022-12-06] MEDS: Famotidine/PF 20 MG/2 ML VIAL IVPUSH (08:47)
[2022-12-06] MEDS: 0.9 % Sodium Chloride Flush 3 ML SYRINGE IVFLUSH (08:48)
--- NOTE | 2022-12-06 09:00 | MHC.CM.PN ---
PATIENT LIVES WITH FAMILY AND IS INDEPENDENT WITH ALL ADLS. NO DME OR VNA SERVICES. HCP IS GRAND MOTHER, ROBERT, AND COPY IS REQUESTED FOR MEDICAL RECORDS. DC PLAN IS HOME TODAY - SELF CARE RN AWARE
== END 2022-12-06 10:21 | disposition home or self-care (01) | DRG 621 ==
LOC: HO.SSSA 10:37 → HO.S3 13:02
PROVIDERS: Physician Assistant Surgical; Admitting Provider Surgery; PCP Family Medicine; Visit Provider Surgery
PROC: 0DB64Z3 Excision of Stomach, Percutaneous Endoscopic Approach, Vertical (ICD-10-PCS; CPT 43845; principal; 2022-12-05 07:30)
DX: E66.9 Obesity, unspecified (principal); K21.9 Gastro-esophageal reflux disease without esophagitis; K76.0 Fatty (change of) liver, not elsewhere classified; M54.9 Dorsalgia, unspecified; K74.00 Hepatic fibrosis, unspecified; F41.9 Anxiety disorder, unspecified; F32.A Depression, unspecified; Z68.38 Body mass index [BMI] 38.0-38.9, adult; Z79.899 Other long term (current) drug therapy
CPT/HCPCS: 36415; 80048; 85014; 85018; 85025; 86850; 86900; 86901; 88304; 88305; 88307; 88342; A4649; C9088; C9145; J0131; J0690; J1100; J1170; J2250; J2371; J2405; J2550; J2795; J3010

== ENCOUNTER → 2022-12-05 06:04 | Outpatient (BNV) | payer OTHER, SELFPAY | PROVIDERS: Admitting Provider Surgery; PCP Family Medicine; Visit Provider Surgery | DX: E66.9 Obesity, unspecified (principal); Z68.38 Body mass index [BMI] 38.0-38.9, adult | CPT/HCPCS: 43659; 43775 ==

== ENCOUNTER 2022-12-10 10:20 | Outpatient (AMB) | payer OTHER, SELFPAY ==
--- NOTE | 2022-12-10 10:46 | MHC.OFFVISWM ---
Intake VS Expanded 12/10/22 11:10 Height 5 ft 6 in Weight 225 lb 9.6 oz BMI 36.4 BP 112/65 Blood Pressure Location Rt brachial Blood Pressure Position Sitting Pulse 86 Pulse Source Pulse Oximeter Temp 97.0 F Temperature Source Tympanic Pulse Oximetry 94 Oxygen Delivery Method Room Air Body Fat 76.8 Body Fat Percentage 34.0 Free Fat Mass 148.8 Muscle Mass 141.6 Visceral Mass 18.0 Water Mass 106.8 BMR 2,022 Intake Visit Reasons: (OV) 5 Days PO LSG 12/05/22 Allergies No Known Allergies Allergy (Verified 11/19/22 12:38) HPI HPI Comments History of Present Illness Details 27 yo male POD 5 s/p LSH on 12/05/22. Allo 3 celebrate 4 in 1 shakes w scoop each and 40 oz water Pos BM no sig pain. PFSH Medical History (Updated 12/07/22 @ 00:01 by Sy Law) BMI 38.0-38.9,adult Morbid obesity Anxiety Back pain GERD (gastroesophageal reflux disease) Depression Surgical History (Updated 12/10/22 @ 11:14 by Aspen Wilson CMA) Hx of laparoscopic partial gastrectomy Family History Mother No problems noted. Father No problems noted. Social History Household Members: Family Housing: Apartment Are you a primary home care chaplain to a significant other at home: No Do you presently have visiting nurse or other home services: No Alcohol intake: current Alcohol intake frequency: does not drink Alcohol type: wine Patient Tobacco Use Status: Never used Tobacco service: No Physical Exam Vital Signs: Last Vital Signs Temp 97.0 F 12/10/22 11:10 Pulse 86 12/10/22 11:10 BP 112/65 12/10/22 11:10 Pulse Ox 94 12/10/22 11:10 Oxygen Delivery Method Room Air 12/10/22 11:10 BMI result Body Mass Index 36.4 GI Inspection: Yes incision (central ecchymosis, c/d/i) Assessment & Plan Assessment & Plan (1) Status post sleeve gastrectomy: Code(s): Z90.3 - Acquired absence of stomach [part of] Plan: POD 5 s/p LSG on 12/05/[address] Rodriguez Weight loss prior to surgery was 22.4 pounds or 8.7% TBWL. Original weight on 07/05/22 was 255.8 pounds and op weight was 233.4 pounds. Be sure to text Dr Rodriguez exactly 1 week after surgery your weight from your home scale so he can adjust your meal plan. Continue meal plan until f/u w deleon in 2 weeks May shower, no submersion in bath for another week Continue abdominal binder with activity and exercise for the next 2 weeks. Exercise prior to surgery was walking and treadmill, may resume on No abdominal exercises for 6 weeks post operatively Will be emailed link to post op video for review Reminded of the pace of drinking, 2 mL per minute, 1 oz/15 min. Coding Level of Care Code Global (79090) Diagnoses Status post sleeve gastrectomy Z90.3
[2022-12-10 11:10] VITALS: BP 112/65; PULSE 86; TEMP 36.1; O2SAT 94; BMI 36.4
== END 2022-12-10 11:53 | disposition home or self-care (01) ==
PROVIDERS: PCP Family Medicine; Visit Provider Physician Assistant Surgical
DX: E66.9 Obesity, unspecified (principal); Z68.36 Body mass index [BMI] 36.0-36.9, adult; Z90.3 Acquired absence of stomach [part of]; Z98.84 Bariatric surgery status
CPT/HCPCS: 99024

== ENCOUNTER → 2022-12-10 10:20 | Outpatient (BNVA) | payer OTHER, SELFPAY | PROVIDERS: PCP Family Medicine; Visit Provider Physician Assistant Surgical ==

== ENCOUNTER 2023-01-06 12:29 | Outpatient (AMB) | payer OTHER, SELFPAY ==
--- NOTE | 2023-01-06 12:47 | A.OFFVIS_ITS ---
Intake VS Expanded 01/06/23 12:52 BP 95/55 L Blood Pressure Location Rt brachial Blood Pressure Position Sitting Pulse 67 Pulse Source Pulse Oximeter Temp 97.7 F Temperature Source Temporal Artery Scan Pulse Oximetry 67 L Oxygen Delivery Method Room Air Height 5 ft 6 in Weight 210 lb 9.6 oz BMI 34.0 Body Fat % 30.7 Body Fat Mass 64.6 Fat Free Mass 146.0 Visceral Fat Rating 12.0 Body Water % 51.0 Body Water Mass 107.4 Muscle Mass/Score 138.6 Basal Metabolic Rate/Score 2,003 Intake Visit Reasons: (OV) PO LSG 12/05/22 Intake Note: Re-checked pts Bp: 109/58 left brachial Mechanical Adjuster Required: No Allergies No Known Allergies Allergy (Verified 01/06/23 12:48) Medication List - Last Reconciled 01/06/23 by CASSIDY Concepcion pantoprazole 40 mg PO DAILY sucralfate 10 mL PO BID HPI HPI Comments History of Present Illness Details This?a?27?yo male who is s/p LSG without hiatal hernia repair on?12/05/22. Presents for 1 month post op visit. Weight today is 210.6 pounds, with a BMI of 34. There has been a 45.2 pound weight loss,(initial weight 255.8 pounds) since starting the program on 07/05/22 reflecting a 17.6% total body weight loss and a weight loss of 22.8 pounds since surgery (operative weight 233.4 pounds) reflecting a 9.7% TBWL since surgery. No complaints of nausea, emesis, abdominal pain or reflux. Reports infrequent but normal bowel movements every 2 days and uses stool softeners regularly. States that it is difficult for him to do the recommended meal plan per Dr. Lujan which was for celebrate shakes, 2 scoops in the 1st 2 shakes and 1 scoop in the 2nd 2 shakes. Prior to surgery he was using Premier protein. He is enquiring about starting food, although when asked further his Gram a would like to know when he can start food as he has no particular interest in it at this time. Had difficulty with protein bars after surgery Present meal plan includes: Currently doing to celebrate 4 in 1 shakes with 2 scoops each at, 12-2pm, 3-6 pm mixed in 8 oz almond milk 1 more with 1 scoop at 9-11 Drinking 32 oz water ? Exercise routine includes: walking 250-260 calories daily PFSH Medical History BMI 38.0-38.9,adult Morbid obesity Anxiety Back pain GERD (gastroesophageal reflux disease) Depression Surgical History Hx of laparoscopic partial gastrectomy Family History Mother No problems noted. Father No problems noted. Social History Household Members: Family Housing: Apartment Are you a primary healthcare sales representative to a significant other at home: No Do you presently have visiting nurse or other home services: No Alcohol intake: current Alcohol intake frequency: does not drink Alcohol type: wine Patient Tobacco Use Status: Never used Tobacco service: No Review of Systems Const All systems reviewed & are unremarkable except as noted in HPI and below Physical Exam Vital Signs: Last Vital Signs Temp 97.7 F 01/06/23 12:52 Pulse 67 01/06/23 12:52 BP 95/55 L 01/06/23 12:52 Pulse Ox 67 L 01/06/23 12:52 Oxygen Delivery Method Room Air 01/06/23 12:52 BMI result Body Mass Index 34.0 Assessment & Plan Assessment & Plan (1) Status post sleeve gastrectomy: Code(s): Z90.3 - Acquired absence of stomach [part of] Plan: Requests change in meal plan as celebrate expensive. Celebrate 4 in 1 2 scoops each 12-2, 3-5pm Premier Protein 1 scoop 6-8 pm 4 forks nigerien yogurt 9-11pm reminded to track calories while walking for a goal of 300 daily increase water to 48 oz daily (2) Renal cyst: Code(s): N28.1 - Cyst of kidney, acquired Plan: missed US due to misimformation from our office, I called central scheduling to have it re-scheduled for 01/17/23 at 3:30 pm Coding Level of Care Code Global (16200) Diagnoses Status post sleeve gastrectomy Z90.3 Renal cyst N28.1
[2023-01-06 12:52] VITALS: BP 95/55; PULSE 67; TEMP 36.5; O2SAT 67; BMI 34.0
== END 2023-01-06 13:27 | disposition home or self-care (01) ==
PROVIDERS: PCP Family Medicine; Visit Provider Physician Assistant Surgical
DX: Z90.3 Acquired absence of stomach [part of] (principal); N28.1 Cyst of kidney, acquired
CPT/HCPCS: 99024

== ENCOUNTER → 2023-01-06 12:29 | Outpatient (BNVA) | payer OTHER, SELFPAY | PROVIDERS: PCP Family Medicine; Visit Provider Physician Assistant Surgical ==

== ENCOUNTER 2023-01-17 15:04 | Outpatient (REF) | payer OTHER, SELFPAY ==
--- NOTE | ~2023-01-17 | US_ITS ---
EXAMINATION: US RETROPERITONEAL LIMITED (RENAL ONLY) CLINICAL INFORMATION: Cyst of kidney, acquired. COMPARISON: Ultrasound abdomen 09/27/2022. TECHNIQUE: Real-time imaging of the kidneys. Limited visualization due to bowel gas. FINDINGS: RIGHT KIDNEY: 11.5 x 5.1 x 6.1 cm (SAG x AP x TRV). No hydronephrosis. No renal calculi. Renal cortical thickness is normal. Limited visualization. LEFT KIDNEY: 12.5 x 6.7 x 5.5 cm (SAG x AP x TRV). No hydronephrosis. No renal calculi. Renal cortical thickness is normal. Limited visualization. The previously identified left renal complex Bosniak 2F cyst for which follow up had been recommended is not identified today, possibly due to limited visualization due to bowel gas. US/US renal BI IMPRESSION: 1. No hydronephrosis. No renal calculi. 2. The previously identified left renal complex Bosniak 2F cyst for which follow up had been recommended is not identified today, possibly due to limited visualization due to bowel gas. CT scan should be considered for further evaluation.
== END 2023-01-17 15:05 | disposition home or self-care (01) ==
LOC: HO.US 15:04
PROVIDERS: PCP Family Medicine; Visit Provider Physician Assistant Surgical
DX: N28.1 Cyst of kidney, acquired (principal)
CPT/HCPCS: 76775

== ENCOUNTER 2023-02-04 16:10 | Outpatient (AMB) | payer OTHER, SELFPAY ==
--- NOTE | 2023-02-04 12:40 | A.OFFVIS_ITS ---
Intake VS Expanded 02/04/23 12:45 Height 5 ft 6 in Weight 203 lb BMI 32.8 Body Fat % 32.8 Body Fat Mass 66.57 Visceral Fat Rating 13 Body Water % 47.9 Body Water Mass 97.2 Muscle Mass/Score 129.6 Intake Visit Reasons: TV PO LSG 12/05/22 Animal Bounty Hunter Required: No Allergies No Known Allergies Allergy (Verified 01/06/23 12:48) Medication List - Last Reconciled 02/04/23 by CASSIDY Concepcion pantoprazole 40 mg PO DAILY sucralfate 10 mL PO BID HPI HPI Comments History of Present Illness Details This?a?27?yo male who is s/p LSG without hiatal hernia repair on?12/05/22. Presents for 2 month post op visit. Weight today is 203 pounds, with a BMI of 32.8. There has been a 52.8 pound weight loss,(initial weight 255.8 pounds) since starting the program on 07/05/22 reflecting a 20.6% total body weight loss and a weight loss of 30.4 pounds since surgery (operative weight 233.4 pounds) reflecting a 13% TBWL since surgery. No complaints of nausea, emesis, abdominal pain or reflux. Reports infrequent but normal bowel movements every 2 days and uses stool softeners regularly. States that it is difficult to obtain the celebrate 4:1 shake for financial reasons and he went back to premier protein powder. He has started a bariatric mvi as well. Burt +D. Not doing protein bars due to too sweet Does not want to change meal plan at this time Present meal plan includes: 10 am shake 1 scoop 1pm shake 1 scoop 3pm shake 1 scoop 6 pm 2 scoops Drinking 32 oz water Exercise routine includes: previously walking 250-260 calories daily, none in last week [facility] Medical History BMI 38.0-38.9,adult Morbid obesity Anxiety Back pain GERD (gastroesophageal reflux disease) Depression Surgical History Hx of laparoscopic partial gastrectomy Family History Mother No problems noted. Father No problems noted. Social History Household Members: Family Housing: Apartment Are you a primary residential care officer to a significant other at home: No Do you presently have visiting nurse or other home services: No Alcohol intake: current Alcohol intake frequency: does not drink Alcohol type: wine Patient Tobacco Use Status: Never used Tobacco service: No Assessment & Plan Assessment & Plan (1) Status post sleeve gastrectomy: Code(s): Z90.3 - Acquired absence of stomach [part of] Plan: Continue meal plan per pt preference. Continue MVI nad Burt+D Resume exercise rtc 3 weeks text weight weekly Telehealth Telehealth Location of provider rendering services: practice address Location of patient: address on file Patient Identification confirmed using: Name, : Yes Telehealth method: voice only Patient verbally consented to treatment: Yes Patient verbally consented to billing insurance company: Yes Patient informed of any privacy concerns related to visit: Yes Minutes spent on Phone/Video with Pt.: 15 Coding Level of Care Code Global (97424) Diagnoses Status post sleeve gastrectomy Z90.3
[2023-02-04 12:45] VITALS: BMI 32.8
== END 2023-02-04 16:11 | disposition home or self-care (01) ==
LOC: HO.HBS 16:10
PROVIDERS: PCP Family Medicine; Visit Provider Physician Assistant Surgical
DX: Z90.3 Acquired absence of stomach [part of] (principal)
CPT/HCPCS: 99024

== ENCOUNTER → 2023-02-04 16:10 | Outpatient (BNVA) | payer OTHER, SELFPAY | PROVIDERS: PCP Family Medicine; Visit Provider Physician Assistant Surgical | DX: Z90.3 Acquired absence of stomach [part of] (principal) ==

== ENCOUNTER 2023-02-25 15:52 | Outpatient (AMB) | payer OTHER, SELFPAY ==
[2023-02-25 14:29] VITALS: BMI 31.3
--- NOTE | 2023-02-25 14:29 | MHC.OFFVISWM ---
Intake VS Expanded 02/25/23 14:29 Height 5 ft 6 in Weight 193 lb 12.8 oz BMI 31.3 Body Fat % 31.2 Body Fat Mass 60.4 Fat Free Mass 52.4 Visceral Fat Rating 12 Body Water % 49 Body Water Mass 94.9 Muscle Mass/Score 126.7 Basal Metabolic Rate/Score 1,826 Intake Visit Reasons: TV PO LSG 12/05/22 Supervisor Refining Required: No Allergies No Known Allergies Allergy (Verified 01/06/23 12:48) Medication List - Last Reconciled 02/25/23 by CASSIDY Concepcion [bariatric MVI PO DAILY] HPI HPI Comments History of Present Illness Details This?a?27?yo male who is s/p LSG without hiatal hernia repair on?12/05/22. Presents for 2 months 3 weeks month post op visit. Weight today is 193.8 pounds, with a BMI of 31.3. There has been a 62 pound weight loss,(initial weight 255.8 pounds) since starting the program on 07/05/22 reflecting a 24.2% total body weight loss and a weight loss of 39.6 pounds since surgery (operative weight 233.4 pounds) reflecting a 16.9% TBWL since surgery. No complaints of nausea, emesis, abdominal pain or reflux. Reports infrequent but normal bowel movements every 2 days and uses stool softeners regularly. States that it is difficult to obtain the celebrate 4:1 shake for financial reasons and he went back to premier protein powder. He has started a bariatric mvi as well. Burt +D. Does not want to change meal plan at this time. He now wakes at 10-11 and now he changed his meal plan. He has had some soup homemade chicken and broccoli Present meal plan includes: 10 am shake 1 scoop, mixed w almond milk 3pm shake 1 scoop 6 pm 2 scoops Drinking 48-64 oz water Exercise routine includes: stationary bike, daily 30 minutes, [facility] Medical History BMI 38.0-38.9,adult Morbid obesity Anxiety Back pain GERD (gastroesophageal reflux disease) Depression Surgical History Hx of laparoscopic partial gastrectomy Family History Mother No problems noted. Father No problems noted. Social History Household Members: Family Housing: Apartment Are you a primary daycare director to a significant other at home: No Do you presently have visiting nurse or other home services: No Alcohol intake: current Alcohol intake frequency: does not drink Alcohol type: wine Patient Tobacco Use Status: Never used Tobacco service: No Assessment & Plan Assessment & Plan (1) Obesity (BMI 30-39.9): Code(s): E66.9 - Obesity, unspecified Plan: Overall, making good progress. Change meal plan Premier protein powder Three shakes, 1 scoop each in almond milk and 1 meal with 6 forks protein and for forks vegetables. Increase exercise, using the stationary bike, 30 minutes in the morning and 15 minutes in the evening, daily. Return to clinic in 3-4 weeks. Telehealth Telehealth Location of provider rendering services: practice address Location of patient: address on file Patient Identification confirmed using: Name, : Yes Telehealth method: voice only Patient verbally consented to treatment: Yes Patient verbally consented to billing insurance company: Yes Patient informed of any privacy concerns related to visit: Yes Minutes spent on Phone/Video with Pt.: 20 Coding Level of Care Code Global (40264) Diagnoses Obesity (BMI 30-39.9) E66.9
== END 2023-02-25 15:52 | disposition home or self-care (01) ==
LOC: HO.HBS 15:52
PROVIDERS: PCP Family Medicine; Visit Provider Physician Assistant Surgical
DX: E66.9 Obesity, unspecified (principal)
CPT/HCPCS: 99024

== ENCOUNTER → 2023-02-25 15:52 | Outpatient (BNVA) | payer OTHER, SELFPAY | PROVIDERS: PCP Family Medicine; Visit Provider Physician Assistant Surgical ==

== ENCOUNTER 2023-03-25 15:11 | Outpatient (AMB) | payer OTHER, SELFPAY ==
--- NOTE | 2023-03-25 12:42 | MHC.OFFVISWM ---
Intake VS Expanded 03/25/23 12:43 Height 5 ft 6 in Weight 190 lb 5 oz BMI 30.7 Body Fat % 30.5 Body Fat Mass 57.9 Visceral Fat Rating 12 Body Water % 49.5 Body Water Mass 94 Muscle Mass/Score 125.8 Basal Metabolic Rate/Score 1,803 Intake Visit Reasons: TV PO LSG 12/05/22 Fruit Harvester Required: No Allergies No Known Allergies Allergy (Verified 01/06/23 12:48) Medication List - Last Reconciled 03/25/23 by CASSIDY Concepcion [bariatric MVI PO DAILY] HPI HPI Comments History of Present Illness Details This?a?27?yo male who is s/p LSG without hiatal hernia repair on?12/05/22. Presents for 3.5 month post op visit. Weight today is 190.5 pounds, with a BMI of 30.7. There has been a 65.3 pound weight loss,(initial weight 255.8 pounds) since starting the program on 07/05/22 reflecting a 25.5% total body weight loss and a weight loss of 42.9 pounds since surgery (operative weight 233.4 pounds) reflecting a 18.3% TBWL since surgery. No complaints of nausea, emesis, abdominal pain or reflux. Reports infrequent but normal bowel movements every 2 days and uses stool softeners regularly. States that he is still doing the premier protein but can only finish 1 shake due to feelings of bloat, this has been for the last week and he also reports constipation. He also switched back to just shakes due to concern over weight gain. Last BM 3 days ago but had BM this morning. He also reports that he is very pleased with his progress so far Present meal plan includes: Premier protein powder Three shakes, 1 scoop each in almond milk and 1 meal with 6 forks protein and 6 forks vegetables. Drinking 48 oz water Exercise routine includes: stationary bike, daily, 350-400 PFSH Medical History BMI 38.0-38.9,adult Morbid obesity Anxiety Back pain GERD (gastroesophageal reflux disease) Depression Surgical History Hx of laparoscopic partial gastrectomy Family History Mother No problems noted. Father No problems noted. Social History Household Members: Family Housing: Apartment Are you a primary home care and home health aides teacher to a significant other at home: No Do you presently have visiting nurse or other home services: No Alcohol intake: current Alcohol intake frequency: does not drink Alcohol type: wine Patient Tobacco Use Status: Never used Tobacco service: No Review of Systems Const All systems reviewed & are unremarkable except as noted in HPI and below Assessment & Plan Assessment & Plan (1) Obesity: Code(s): E66.9 - Obesity, unspecified Plan: 5 lb away from no longer being obese. Recommendation is to follow the meal plan specifically including 3 shakes with 1 scoop each and 6 forks of protein and 6 forks of vegetables. He will continue current exercise plan. Add fiber gummy two daily. Text me with any questions or concerns. Return to clinic in 3-4 weeks. Telehealth Telehealth Location of provider rendering services: practice address Location of patient: other Patient Identification confirmed using: Name, : Yes Telehealth method: voice only Patient verbally consented to treatment: Yes Patient verbally consented to billing insurance company: Yes Patient informed of any privacy concerns related to visit: Yes Minutes spent on Phone/Video with Pt.: 15 Coding Level of Care Code Tele Est Pt Level 3 (87688) Diagnoses Obesity E66.9 Time Spent (min) 20
[2023-03-25 12:43] VITALS: BMI 30.7
== END 2023-03-25 15:14 | disposition home or self-care (01) ==
LOC: HO.HBS 15:11
PROVIDERS: PCP Family Medicine; Referring Provider Family Medicine; Visit Provider Physician Assistant Surgical
DX: E66.9 Obesity, unspecified (principal)
CPT/HCPCS: 99213

== ENCOUNTER → 2023-03-25 15:11 | Outpatient (BNVA) | payer OTHER, SELFPAY | PROVIDERS: PCP Family Medicine; Visit Provider Physician Assistant Surgical ==

== ENCOUNTER 2023-04-21 15:20 | Outpatient (AMB) | payer OTHER, SELFPAY ==
[2023-04-21 14:27] VITALS: BMI 30.1
--- NOTE | 2023-04-21 14:27 | MHC.OFFVISWM ---
Intake VS Expanded 04/21/23 14:27 Height 5 ft 6 in Weight 186 lb 9.6 oz BMI 30.1 Body Fat % 29.8 Body Fat Mass 55.5 Fat Free Mass 124.3 Visceral Fat Rating 12 Body Water % 50 Body Water Mass 73.3 Muscle Mass/Score 124.3 Basal Metabolic Rate/Score 1,776 Intake Visit Reasons: TV PO LSG 12/05/22 Allergies No Known Allergies Allergy (Verified 01/06/23 12:48) Medication List - Last Reconciled 04/21/23 by CASSIDY Concepcion [bariatric MVI PO DAILY] HPI HPI Comments History of Present Illness Details This?a?27?yo male who is s/p LSG without hiatal hernia repair on?12/05/22. Presents for 4.5 month post op visit. Weight today is 186.6 pounds, with a BMI of 30.1. There has been a 69.2 pound weight loss,(initial weight 255.8 pounds) since starting the program on 07/05/22 reflecting a 27% total body weight loss and a weight loss of 46.8 pounds since surgery (operative weight 233.4 pounds) reflecting a 20% TBWL since surgery. No complaints of nausea, emesis, abdominal pain or reflux. Reports infrequent but normal bowel movements every 2 days and uses stool softeners regularly. States that he has had increased depression with increased sleep and decreased exercise interest. Only having one shake per day as he feels bloated. Due to financial insecurity, cannot get fairlife shakes until 04/24/23. Has farm fresh eggs available from his aunt. States that he is still doing the premier protein but can only finish 1 shake due to feelings of bloat, this has been for the last week and he also reports constipation. He also switched back to just shakes due to concern over weight gain. Last BM 3 days ago but had BM this morning. He also reports that he is very pleased with his progress so far Present meal plan includes: Premier protein powder Three shakes, 1 scoop each in almond milk 1 meal with 6 forks protein and 6 forks vegetables. Drinking 48-64 oz water Exercise routine includes: stationary bike, daily, 350-400 PFSH Medical History BMI 38.0-38.9,adult Morbid obesity Anxiety Back pain GERD (gastroesophageal reflux disease) Depression Surgical History Hx of laparoscopic partial gastrectomy Family History Mother No problems noted. Father No problems noted. Social History Household Members: Family Housing: Apartment Are you a primary residential child care counselor to a significant other at home: No Do you presently have visiting nurse or other home services: No Alcohol intake: current Alcohol intake frequency: does not drink Alcohol type: wine Patient Tobacco Use Status: Never used Tobacco service: No Assessment & Plan Assessment & Plan (1) Obesity: Code(s): E66.9 - Obesity, unspecified Plan: Recommend to start resumption of a regular schedule, setting alarm and awakening at 08:00. Going to bed at 09:30 or 22:00. Change meal plan: Two eggs citizen of [place] yogurt w fresh berries meal w 6 forks protein and 6 forks vegetables He was encouraged to text me in 2 days to let me know how his new meal plan is going. Once he gets his check at the beginning of the month, we will change his meal plan to include a fair life ready to drink shake. Encouraged to resume stationary bike on a daily basis. Return to office 3 weeks. Telehealth Telehealth Location of provider rendering services: practice address Location of patient: address on file Patient Identification confirmed using: Name, : Yes Telehealth method: voice only Patient verbally consented to treatment: Yes Patient verbally consented to billing insurance company: Yes Patient informed of any privacy concerns related to visit: Yes Minutes spent on Phone/Video with Pt.: 15 Coding Level of Care Code Tele Est Pt Level 3 (47966) Diagnoses Obesity E66.9 Time Spent (min) 20
== END 2023-04-21 15:33 | disposition home or self-care (01) ==
PROVIDERS: PCP Family Medicine; Visit Provider Physician Assistant Surgical
DX: E66.9 Obesity, unspecified (principal)
CPT/HCPCS: 99213

== ENCOUNTER → 2023-04-21 15:20 | Outpatient (BNVA) | payer OTHER, SELFPAY | PROVIDERS: PCP Family Medicine; Visit Provider Physician Assistant Surgical ==

== ENCOUNTER 2023-06-02 15:05 | Outpatient (AMB) | payer OTHER, SELFPAY ==
--- NOTE | 2023-06-02 12:55 | MHC.OFFVISWM ---
Intake VS Expanded 06/02/23 12:56 Height 5 ft 6 in Weight 179 lb 11.2 oz BMI 29.0 Body Fat % 28.3 Body Fat Mass 50.7 Fat Free Mass 129 Visceral Fat Rating 12 Body Water % 49 Body Water Mass 88 Muscle Mass/Score 122.5 Basal Metabolic Rate/Score 1,730 Intake Visit Reasons: TV PO LSG 12/05/22 Director Sales Training Required: No Allergies No Known Allergies Allergy (Verified 01/06/23 12:48) Medication List - Last Reconciled 06/02/23 by CASSIDY Concepcion [bariatric MVI PO DAILY] HPI HPI Comments History of Present Illness Details This?a?27?yo male who is s/p LSG without hiatal hernia repair on?12/05/22. Presents for 6 month post op visit. Weight today is 179.7 pounds, with a BMI of 29. There has been a 76.1 pound weight loss,(initial weight 255.8 pounds) since starting the program on 07/05/22 reflecting a 29.7% total body weight loss and a weight loss of 53.7 pounds since surgery (operative weight 233.4 pounds) reflecting a 23% TBWL since surgery. No complaints of nausea, emesis, abdominal pain or reflux. Reports infrequent but normal bowel movements every 2 days and uses stool softeners regularly. States that he is doing well overall. He also reports that he is very pleased with his progress so far Present meal plan includes: Two eggs ugandan yogurt w fresh berries meal w 6 forks protein and 6 forks vegetables or Premier protein 1 scoop in 8 oz almond milk Drinking 48-64 oz water Exercise routine includes: core body weight exercises as his bike broke. Any post op complications: none MIKE: never DM: never HTN: never Hyperlipidemia: never GERD:?0-5 scale ??0 = no symptoms ??1 = symptoms noticeable but not bothersome 2 =symptoms bothersome but not daily ? 3 = symptoms bothersome and daily 4 = symptoms affect daily activities 5 = symptoms are incapacitating, unable to do daily activities ? How bad is the heartburn: 0 ? Heartburn while lying down: 0 ? Heartburn when standing up: 0 ? Heartburn after meals: 0 ? Does heartburn change your diet: 0 ? Does heartburn wake you up from sleep: 0 ? Do you have difficulty swallowin ? Do you have pain with swallowin ? If you take medicine for your reflux, does this affect your daily life: 0 Satisfaction with present condition - satisfied or not satisfied: satisfied [facility] Medical History BMI 38.0-38.9,adult Morbid obesity Anxiety Back pain GERD (gastroesophageal reflux disease) Depression Surgical History Hx of laparoscopic partial gastrectomy Family History Mother No problems noted. Father No problems noted. Social History Household Members: Family Housing: Apartment Are you a primary care professionals to a significant other at home: No Do you presently have visiting nurse or other home services: No Alcohol intake: current Alcohol intake frequency: does not drink Alcohol type: wine Patient Tobacco Use Status: Never used Tobacco service: No Assessment & Plan Assessment & Plan (1) Status post sleeve gastrectomy: Code(s): Z90.3 - Acquired absence of stomach [part of] Plan: Overall, he is made good progress. We will check six-month labs. Encouraged him to call his insurance company to see if they will reimburse him for a used exercise bike. In the meantime, he will do home videos including cardio activities as well as body weight exercises. Increase protein shake scoop to 2. Return to clinic 4-5 weeks. Encouraged to continue to text me weekly and with any questions. Orders: Orders Insulin Today K74.00 - Hepatic fibrosis, unspecified, Z90.3 - Acquired absence of stomach [part of] Lipid Panel Today K74.00 - Hepatic fibrosis, unspecified, Z90.3 - Acquired absence of stomach [part of] IRON PROFILE Today K74.00 - Hepatic fibrosis, unspecified, Z90.3 - Acquired absence of stomach [part of] Basic Metabolic Panel Today K74.00 - Hepatic fibrosis, unspecified, Z90.3 - Acquired absence of stomach [part of] Hemoglobin A1c Today K74.00 - Hepatic fibrosis, unspecified, Z90.3 - Acquired absence of stomach [part of] Complete Blood Count Auto Diff Today K74.00 - Hepatic fibrosis, unspecified, Z90.3 - Acquired absence of stomach [part of] Vitamin B12 and Folate Today K74.00 - Hepatic fibrosis, unspecified, Z90.3 - Acquired absence of stomach [part of] Zinc Today K74.00 - Hepatic fibrosis, unspecified, Z90.3 - Acquired absence of stomach [part of] C Reactive Protein Today K74.00 - Hepatic fibrosis, unspecified, Z90.3 - Acquired absence of stomach [part of] Vitamin B1 Today K74.00 - Hepatic fibrosis, unspecified, Z90.3 - Acquired absence of stomach [part of] Vitamin A Today K74.00 - Hepatic fibrosis, unspecified, Z90.3 - Acquired absence of stomach [part of] TSH reflex Free T4 Today K74.00 - Hepatic fibrosis, unspecified, Z90.3 - Acquired absence of stomach [part of] Ferritin Today K74.00 - Hepatic fibrosis, unspecified, Z90.3 - Acquired absence of stomach [part of] Vitamin D 25-OH Total Today K74.00 - Hepatic fibrosis, unspecified, Z90.3 - Acquired absence of stomach [part of] Telehealth Telehealth Location of provider rendering services: practice address Location of patient: address on file Patient Identification confirmed using: Name, : Yes Telehealth method: voice only Patient verbally consented to treatment: Yes Patient verbally consented to billing insurance company: Yes Patient informed of any privacy concerns related to visit: Yes Minutes spent on Phone/Video with Pt.: 20 Coding Level of Care Code Tele Est Pt Level 3 (99039) Diagnoses Status post sleeve gastrectomy Z90.3 Time Spent (min) 25
[2023-06-02 12:56] VITALS: BMI 29.0
== END 2023-06-02 15:08 | disposition home or self-care (01) ==
LOC: HO.HBS 15:05
PROVIDERS: PCP Family Medicine; Visit Provider Physician Assistant Surgical
DX: E66.3 Overweight (principal); Z68.29 Body mass index [BMI] 29.0-29.9, adult; Z90.3 Acquired absence of stomach [part of]; Z98.84 Bariatric surgery status
CPT/HCPCS: 99442

== ENCOUNTER → 2023-06-02 15:05 | Outpatient (BNVA) | payer OTHER, SELFPAY | PROVIDERS: PCP Family Medicine; Visit Provider Physician Assistant Surgical | DX: Z90.3 Acquired absence of stomach [part of] (principal); K74.00 Hepatic fibrosis, unspecified ==

== ENCOUNTER 2023-06-30 11:53 | Outpatient (AMB) | payer OTHER, SELFPAY ==
[2023-06-30 11:57] VITALS: BMI 27.9
--- NOTE | 2023-06-30 11:57 | MHC.OFFVISWM ---
Intake VS Expanded 06/30/23 11:57 Height 5 ft 6 in Weight 172 lb 12.8 oz BMI 27.9 Body Fat % 25.5 Body Fat Mass 43.8 Visceral Fat Rating 11 Body Water % 51 Body Water Mass 88.1 Muscle Mass/Score 122.5 Basal Metabolic Rate/Score 1,674 Intake Visit Reasons: TV PO LSG 12/05/22 Life Trainer Required: No Allergies No Known Allergies Allergy (Verified 01/06/23 12:48) Medication List - Last Reconciled 06/30/23 by CASSIDY Concepcion [bariatric MVI PO DAILY] HPI HPI Comments History of Present Illness Details This?a?27?yo male who is s/p LSG without hiatal hernia repair on?12/05/22. Presents for 7 month post op visit. Weight today is 172.8 pounds, with a BMI of 27.9. There has been a 83 pound weight loss,(initial weight 255.8 pounds) since starting the program on 07/05/22 reflecting a 32.4% total body weight loss and a weight loss of 60.6 pounds since surgery (operative weight 233.4 pounds) reflecting a 25.9% TBWL since surgery. No complaints of nausea, emesis, abdominal pain or reflux. Reports infrequent but normal bowel movements every 2 days and uses stool softeners regularly. States that he is doing well overall. He also reports that he is very pleased with his progress so far. He states he is hungry throughout the day about 30-120 minutes after eating. Present meal plan includes: 11 am Two eggs 3-4 pm salad with salmon, not measuring 6pm coffee Drinking 48-64 oz water Exercise routine includes: stationary bike [facility] Medical History BMI 38.0-38.9,adult Morbid obesity Anxiety Back pain GERD (gastroesophageal reflux disease) Depression Surgical History Hx of laparoscopic partial gastrectomy Family History Mother No problems noted. Father No problems noted. Social History Household Members: Family Housing: Apartment Are you a primary critical care cns to a significant other at home: No Do you presently have visiting nurse or other home services: No Alcohol intake: current Alcohol intake frequency: does not drink Alcohol type: wine Patient Tobacco Use Status: Never used Tobacco service: No Assessment & Plan Assessment & Plan (1) Status post sleeve gastrectomy: Code(s): Z90.3 - Acquired absence of stomach [part of] Plan: Encouraged to follow plan consistently. Two eggs 8 forks of salmon or chicken, 6 forks of vegetables Quest protein bar or 2 eggs Continue exercise on stationary bike. Text with any questions or concerns. Return to clinic 2 months. Telehealth Telehealth Location of provider rendering services: practice address Location of patient: address on file Patient Identification confirmed using: Name, : Yes Telehealth method: voice only Patient verbally consented to treatment: Yes Patient verbally consented to billing insurance company: Yes Patient informed of any privacy concerns related to visit: Yes Minutes spent on Phone/Video with Pt.: 15 Coding Level of Care Code Tele Est Pt Level 3 (92528) Diagnoses Status post sleeve gastrectomy Z90.3 Time Spent (min) 18
== END 2023-06-30 12:51 | disposition home or self-care (01) ==
LOC: HO.HBS 11:53
PROVIDERS: PCP Family Medicine; Referring Provider Family Medicine; Visit Provider Physician Assistant Surgical
DX: E66.3 Overweight (principal); Z68.27 Body mass index [BMI] 27.0-27.9, adult; Z90.3 Acquired absence of stomach [part of]; Z98.84 Bariatric surgery status
CPT/HCPCS: 99213; 99442

== ENCOUNTER → 2023-06-30 11:53 | Outpatient (BNVA) | payer OTHER, SELFPAY | PROVIDERS: PCP Family Medicine; Visit Provider Physician Assistant Surgical | DX: Z90.3 Acquired absence of stomach [part of] (principal); K74.00 Hepatic fibrosis, unspecified ==

== ENCOUNTER → 2023-07-15 14:13 | Outpatient (BNVA) | payer OTHER, SELFPAY | PROVIDERS: PCP Family Medicine; Visit Provider Physician Assistant Surgical ==

== ENCOUNTER 2023-07-28 15:19 | Outpatient (AMB) | payer OTHER, SELFPAY ==
--- NOTE | 2023-07-28 15:09 | A.OFFVIS_ITS ---
Intake Visit Reasons: TV PO LSG 12/05/22 Web Programmer Required: No Allergies No Known Allergies Allergy (Verified 01/06/23 12:48) Medication List - Last Reconciled 07/28/23 by CASSIDY Concepcion [bariatric MVI PO DAILY] HPI Comments Details: This?a?27?yo male who is s/p LSG without hiatal hernia repair on?12/05/22. Presents for 8 month post op visit. Patient states that his scale batteries have and he is waiting to get assistance check to then be able to buy new batteries. He denies any complaints at this time. States that he is doing well overall. He also reports that he is very pleased with his progress so far. Present meal plan includes: coffee 11 am Two eggs yogurt w 1 scoop of premier protein 3-4 pm salad with salmon, or chicken Drinking 48-64 oz water Exercise routine includes: stationary bike [facility] Medical History BMI 38.0-38.9,adult Morbid obesity Anxiety Back pain GERD (gastroesophageal reflux disease) Depression Surgical History Hx of laparoscopic partial gastrectomy Family History Mother No problems noted. Father No problems noted. Social History Household Members: Family Housing: Apartment Are you a primary summer child caregiver to a significant other at home: No Do you presently have visiting nurse or other home services: No Alcohol intake: current Alcohol intake frequency: does not drink Alcohol type: wine Patient Tobacco Use Status: Never used Tobacco service: No Telehealth Telehealth Telehealth Platform: Telephone Location of provider rendering services: practice address Location of patient: address on file Patient Identification confirmed using: Name, : Yes Telehealth method: voice only Patient verbally consented to treatment: Yes Patient verbally consented to billing insurance company: Yes Patient informed of any privacy concerns related to visit: Yes Minutes spent on Phone/Video with Pt.: 12 Assessment & Plan Assessment & Plan (1) Status post sleeve gastrectomy: Code(s): Z90.3 - Acquired absence of stomach [part of] Category: Surgical Plan: Patient will continue current meal plan. He will text me his weight once he gets new batteries for his scale. Encouraged to continue exercise.
== END 2023-07-28 15:23 | disposition home or self-care (01) ==
LOC: HO.HBS 15:19
PROVIDERS: PCP Family Medicine; Visit Provider Physician Assistant Surgical
DX: E66.3 Overweight (principal); Z68.27 Body mass index [BMI] 27.0-27.9, adult; Z90.3 Acquired absence of stomach [part of]; Z98.84 Bariatric surgery status
CPT/HCPCS: 99442

== ENCOUNTER → 2023-07-28 15:19 | Outpatient (BNVA) | payer OTHER, SELFPAY | PROVIDERS: PCP Family Medicine; Visit Provider Physician Assistant Surgical | DX: Z90.3 Acquired absence of stomach [part of] (principal); K74.00 Hepatic fibrosis, unspecified ==

== ENCOUNTER 2023-09-29 14:25 | Outpatient (AMB) | payer OTHER, SELFPAY ==
--- NOTE | 2023-09-29 14:26 | MHC.OFFVISWM ---
VS Expanded 09/29/23 14:34 BP 101/61 Blood Pressure Location Rt brachial Blood Pressure Position Sitting Pulse 76 Pulse Source Pulse Oximeter Temp 96.8 F Temperature Source Temporal Artery Scan Pulse Oximetry 98 Oxygen Delivery Method Room Air Height 5 ft 6 in Weight 175 lb 12.8 oz BMI 28.4 Body Fat % 19.8 Body Fat Mass 34.8 Fat Free Mass 140.8 Visceral Fat Rating 6.0 Body Water % 60.2 Body Water Mass 105.8 Muscle Mass/Score 133.8 Basal Metabolic Rate/Score 1,882 Intake Visit Reasons: ov PO LSG 12/05/22 Accounting Lecturer Required: No Allergies No Known Allergies Allergy (Verified 09/29/23 14:30) Medication List - Last Reconciled 09/29/23 by CASSIDY Concepcion multivit with min-folic acid 200 mcg (Multivitamin Gummies) tabs PO HPI Comments Details: This?a?28?yo male who is s/p LSG without hiatal hernia repair on?12/05/22. Presents for 10 month post op visit. Weight today is 175.8 pounds, with a BMI of 28.4. There has been a 80 pound weight loss,(initial weight 255.8 pounds) since starting the program on 07/05/22 reflecting a 31.2% total body weight loss and a weight loss of 57.6 pounds since surgery (operative weight 233.4 pounds) reflecting a 24.6% TBWL since surgery. No complaints of nausea, emesis, abdominal pain or reflux. States that he is doing well overall. He also reports that he is very pleased with his progress so far. Present meal plan includes: coffee, cream Premier protein 1 scoop in 8 oz almond milk or low fat milk meal 4 forks protein and 4 forks salad. Drinking 64-80 oz water Exercise routine includes: nothing PFSH Medical History BMI 38.0-38.9,adult Morbid obesity Anxiety Back pain GERD (gastroesophageal reflux disease) Depression Surgical History Hx of laparoscopic partial gastrectomy Family History Mother No problems noted. Father No problems noted. Social History Household Members: Family Housing: Apartment Are you a primary career and transition teacher to a significant other at home: No Do you presently have visiting nurse or other home services: No Alcohol intake: former Patient Tobacco Use Status: Never used Tobacco service: No Review of Systems Const All systems reviewed & are unremarkable except as noted in HPI and below Physical Exam Const General: healthy appearing and no acute distress Resp Effort & Inspection: normal respiratory effort Auscultation: clear to auscultation bilaterally Cardio Rate: regular rate Rhythm: regular rhythm GI Auscultation: normal bowel sounds Extrem General: Yes normal to inspection Assessment & Plan Assessment & Plan (1) Overweight (BMI 25.0-29.9): Code(s): E66.3 - Overweight Category: Medical Plan: Discussed the importance of following a meal plan consistently. Due to financial constraints, he is sometimes unable to do this. We will recommend the following: Coffee Premier protein shake, 1 scoop in 8 oz of low-fat milk or 2 scoops in 8 oz of unsweetened almond milk Another shake Meal with 4 forks of protein and for forks of vegetables Encouraged to exercise. He does have a stationary bike but wishes to walk outside. Return to the office 1 month.
[2023-09-29 14:34] VITALS: BP 101/61; PULSE 76; TEMP 36; O2SAT 98; BMI 28.4
== END 2023-09-29 15:08 | disposition home or self-care (01) ==
PROVIDERS: PCP Family Medicine; Visit Provider Physician Assistant Surgical
DX: E66.3 Overweight (principal)
CPT/HCPCS: 99213

== ENCOUNTER → 2023-09-29 14:25 | Outpatient (BNVA) | payer OTHER, SELFPAY | PROVIDERS: PCP Family Medicine; Visit Provider Physician Assistant Surgical | DX: Z90.3 Acquired absence of stomach [part of] (principal); K74.00 Hepatic fibrosis, unspecified ==

== ENCOUNTER 2023-10-30 14:17 | Outpatient (AMB) | payer OTHER, SELFPAY ==
[2023-10-30 11:10] VITALS: BMI 28.1
--- NOTE | 2023-10-30 11:10 | MHC.OFFVISWM ---
VS Expanded 10/30/23 11:10 Height 5 ft 6 in Weight 174 lb 1 oz BMI 28.1 Intake Visit Reasons: tv PO LSG 12/05/22 Allergies No Known Allergies Allergy (Verified 09/29/23 14:30) HPI Comments Details: This?a?28?yo male who is s/p LSG without hiatal hernia repair on?12/05/22. Presents for 11 month post op visit. Weight today is 174.1 pounds, with a BMI of 28.1. There has been a 81.7 pound weight loss,(initial weight 255.8 pounds) since starting the program on 07/05/22 reflecting a 31.9% total body weight loss and a weight loss of 59.3 pounds since surgery (operative weight 233.4 pounds) reflecting a 25.4% TBWL since surgery. No complaints of nausea, emesis, abdominal pain or reflux. States that he is doing well overall. He also reports that he is very pleased with his progress so far. Present meal plan includes: Premier protein shake, 1 scoop in 8 oz of low-fat milk or 2 scoops in 8 oz of unsweetened almond milk Another shake Meal with 4 forks of protein and 4 forks of vegetables Drinking 64-80 oz water Exercise routine includes: walking outside [facility] Medical History BMI 38.0-38.9,adult Morbid obesity Anxiety Back pain GERD (gastroesophageal reflux disease) Depression Surgical History Hx of laparoscopic partial gastrectomy Family History Mother No problems noted. Father No problems noted. Social History Household Members: Family Housing: Apartment Are you a primary child care to a significant other at home: No Do you presently have visiting nurse or other home services: No Alcohol intake: former Patient Tobacco Use Status: Never used Tobacco service: No Telehealth Telehealth Telehealth Platform: Telephone Location of provider rendering services: practice address Location of patient: address on file Patient Identification confirmed using: Name, : Yes Telehealth method: voice only Patient verbally consented to treatment: Yes Patient verbally consented to billing insurance company: Yes Patient informed of any privacy concerns related to visit: Yes Minutes spent on Phone/Video with Pt.: 10 Assessment & Plan Assessment & Plan (1) Overweight (BMI 25.0-29.9): Code(s): E66.3 - Overweight Category: Medical Plan: Overall, patient is doing fairly well. He has had minimal exercise due to rain. He does walk outside for his exercise. He is continuing his meal plan using Premier protein, 1 scoop in 8 oz of unsweetened almond milk, x2. He is additionally having a meal. He is satisfied with his meal plan and will continue. We will have him return to the office in approximately a month for his 1 year follow-up as well as to check labs.
== END 2023-10-30 14:24 | disposition home or self-care (01) ==
LOC: HO.HBS 14:17
PROVIDERS: PCP Family Medicine; Visit Provider Physician Assistant Surgical
DX: E66.3 Overweight (principal)
CPT/HCPCS: 99212

== ENCOUNTER → 2023-10-30 14:17 | Outpatient (BNVA) | payer OTHER, SELFPAY | PROVIDERS: PCP Family Medicine; Visit Provider Physician Assistant Surgical | DX: Z90.3 Acquired absence of stomach [part of] (principal); K74.00 Hepatic fibrosis, unspecified ==

== ENCOUNTER 2024-01-16 10:00 | Outpatient (AMB) | payer OTHER, SELFPAY ==
[2024-01-16 08:44] VITALS: BMI 27.8
--- NOTE | 2024-01-16 08:44 | A.OFFVIS_ITS ---
VS Expanded 01/16/24 08:44 Height 5 ft 6 in Weight 172 lb 7 oz BMI 27.8 Intake Visit Reasons: TV PO LSG 12/05/22 Allergies No Known Allergies Allergy (Verified 09/29/23 14:30) HPI Comments Details: This?a?28?yo male who is s/p LSG without hiatal hernia repair on?12/05/22. Presents for 1 year 1 month post op visit. Weight today is 172.7 pounds, with a BMI of 27.8. There has been a 83.1 pound weight loss,(initial weight 255.8 pounds) since starting the program on 07/05/22 reflecting a 32.4% total body weight loss and a weight loss of 60.7 pounds since surgery (operative weight 233.4 pounds) reflecting a 26% TBWL since surgery. No complaints of nausea, emesis, abdominal pain or reflux. States that he is doing well overall. He also reports that he is very pleased with his progress so far. Present meal plan includes: Premier protein shake, 2 scoops in 8 oz of unsweetened almond milk Another shake Meal with 4 forks of protein and 4 forks of vegetables Drinking 64-80 oz water Exercise routine includes: walking outside [facility] Medical History BMI 38.0-38.9,adult Morbid obesity Anxiety Back pain GERD (gastroesophageal reflux disease) Depression Surgical History Hx of laparoscopic partial gastrectomy Family History Mother No problems noted. Father No problems noted. Social History Household Members: Family Housing: Apartment Are you a primary healthcare technician to a significant other at home: No Do you presently have visiting nurse or other home services: No Alcohol intake: former Patient Tobacco Use Status: Never used Tobacco service: No Telehealth Telehealth Telehealth Platform: Telephone Location of provider rendering services: practice address Location of patient: address on file Patient Identification confirmed using: Name, : Yes Telehealth method: voice only Patient verbally consented to treatment: Yes Patient verbally consented to billing insurance company: Yes Patient informed of any privacy concerns related to visit: Yes Minutes spent on Phone/Video with Pt.: 15 Assessment & Plan Assessment & Plan (1) Status post sleeve gastrectomy: Code(s): Z90.3 - Acquired absence of stomach [part of] Category: Surgical Plan: Patient is having to deal with pending legal issues. He is doing the best that he can. Exercising when he is able. Encouraged to continue to do as much as possible, including home cardio videos. Encouraged to text with any questions or concerns. We will have him return to the office in 4-6 weeks. He is unable to get labs done at this point, despite being 1 year postop as he does not have a car, had his license revoked and lives far away.
== END 2024-01-16 10:24 | disposition home or self-care (01) ==
LOC: HO.HBS 10:14
PROVIDERS: PCP Family Medicine; Referring Provider Family Medicine; Visit Provider Physician Assistant Surgical
DX: E66.3 Overweight (principal); Z68.27 Body mass index [BMI] 27.0-27.9, adult; Z90.3 Acquired absence of stomach [part of]; Z98.84 Bariatric surgery status
CPT/HCPCS: 98967

== ENCOUNTER → 2024-01-16 10:00 | Outpatient (BNVA) | payer OTHER, SELFPAY | PROVIDERS: PCP Family Medicine; Visit Provider Physician Assistant Surgical ==

== ENCOUNTER 2024-03-29 15:00 | Outpatient (AMB) | payer OTHER, SELFPAY ==
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
[2024-03-29 09:55] VITALS: BMI 30.1
== END 2024-03-29 15:22 | disposition home or self-care (01) ==
LOC: HO.HBS 15:15
PROVIDERS: PCP Family Medicine; Visit Provider Physician Assistant Surgical
DX: E66.811 Obesity, class 1 (principal); Z68.30 Body mass index [BMI] 30.0-30.9, adult; Z90.3 Acquired absence of stomach [part of]; Z98.84 Bariatric surgery status
CPT/HCPCS: 98967

== ENCOUNTER 2024-05-31 15:00 | Outpatient (AMB) | payer OTHER, SELFPAY ==
[2024-05-31 15:06] VITALS: BMI 32.6
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
== END 2024-05-31 15:23 | disposition home or self-care (01) ==
LOC: HO.HBS 15:11
PROVIDERS: PCP Family Medicine; Visit Provider Physician Assistant Surgical
DX: E66.811 Obesity, class 1 (principal); Z68.32 Body mass index [BMI] 32.0-32.9, adult; Z90.3 Acquired absence of stomach [part of]; Z98.84 Bariatric surgery status
CPT/HCPCS: 98012

== ENCOUNTER → 2024-05-31 15:00 | Outpatient (BNVA) | payer OTHER, SELFPAY | PROVIDERS: PCP Family Medicine; Visit Provider Physician Assistant Surgical ==

== ENCOUNTER 2024-08-09 14:30 | Outpatient (AMB) | payer OTHER, SELFPAY ==
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
[2024-08-09 10:31] VITALS: BMI 33.8
== END 2024-08-09 15:09 | disposition home or self-care (01) ==
LOC: HO.HBS 14:40
PROVIDERS: PCP Family Medicine; Visit Provider Physician Assistant Surgical
DX: Z90.3 Acquired absence of stomach [part of] (principal)
CPT/HCPCS: 98013

== ENCOUNTER → 2024-08-09 14:30 | Outpatient (BNVA) | payer OTHER, SELFPAY | PROVIDERS: PCP Family Medicine; Visit Provider Physician Assistant Surgical ==

== ENCOUNTER 2024-10-11 13:21 | Outpatient (AMB) | payer OTHER, SELFPAY ==
--- NOTE | 2024-10-11 08:09 | A.OFFVIS_ITS ---
VS Expanded 10/11/24 08:10 Height 5 ft 6 in Weight 204 lb BMI 32.9 Intake Visit Reasons: TV PO LSG 12/05/22 Seismograph Shooter Required: No Allergies No Known Allergies Allergy (Verified 09/29/23 14:30) Medication List - Last Reconciled 10/11/24 by CASSIDY Concepcion multivit with min-folic acid 200 mcg (Multivitamin Gummies) tabs PO HPI Comments Details: This?a?29?yo male who is s/p LSG without hiatal hernia repair on?12/05/22. Presents for 1 year 10 month post op visit. Weight today is 204 pounds, with a BMI of 32.9. There has been a 51.8 pound weight loss,(initial weight 255.8 pounds) since starting the program on 07/05/22 reflecting a 20.2% total body weight loss and a weight loss of 29.4 pounds since surgery (operative weight 233.4 pounds) reflecting a 12.5% TBWL since surgery. No complaints of nausea, emesis, abdominal pain or reflux. States that he is doing well overall. He is now in [place]. He states that he was not taking the meal plan seriously nor exercise. He gained weight and has now started taking this more seriously. He started walking twice daily today. Previously walking daily. Present meal plan includes: Premier protein, 2 scoops, repeat with 1 scoop, meal with 6 forks of protein and 5 forks of veggies. Drinking 64-80 oz water Exercise routine includes: walks outside daily 300 calories [facility] Medical History BMI 38.0-38.9,adult Morbid obesity Anxiety Back pain GERD (gastroesophageal reflux disease) Depression Surgical History Hx of laparoscopic partial gastrectomy Family History Mother No problems noted. Father No problems noted. Social History Household Members: Family Housing: Apartment Are you a primary healthcare science specialist to a significant other at home: No Do you presently have visiting nurse or other home services: No Alcohol intake: former Patient Tobacco Use Status: Never used Tobacco service: No Telehealth Telehealth Telehealth Platform: Telephone Location of provider rendering services: practice address Location of patient: address on file Patient Identification confirmed using: Name, : Yes Telehealth method: voice only Patient verbally consented to treatment: Yes Patient verbally consented to billing insurance company: Yes Patient informed of any privacy concerns related to visit: Yes Minutes spent on Phone/Video with Pt.: 15 Assessment & Plan Assessment & Plan (1) Status post sleeve gastrectomy: Code(s): Z90.3 - Acquired absence of stomach [part of] Category: Surgical Plan: Patient was reminded of the meal plan as he had not been doing it correctly. He additionally has just started exercising twice daily. He is walking in the [place] [employer] and again in the evening. He states that he has burning 300 calories per walking session. Encouraged to continue to text weekly has weights. Additionally we will have him return to the office for his 2 year follow-up, check labs at that time.
[2024-10-11 08:10] VITALS: BMI 32.9
== END 2024-10-11 13:23 | disposition home or self-care (01) ==
LOC: HO.HBS 13:21
PROVIDERS: PCP Family Medicine; Visit Provider Physician Assistant Surgical
DX: E66.9 Obesity, unspecified (principal); Z68.30 Body mass index [BMI] 30.0-30.9, adult; Z90.3 Acquired absence of stomach [part of]; Z98.84 Bariatric surgery status
CPT/HCPCS: 98013